=== PATIENT | male | born 1945 | race Caucasian/White ===

== ENCOUNTER 2019-11-29 09:02 | Emergency (ER) | payer MEDICARE, SELFPAY ==
[2019-11-29] VITALS (11 sets, daily range): BP systolic 109–144; BP diastolic 60–90; PULSE 59–103; RESP 16–24; TEMP 36.7–38.1; O2SAT 96–100
--- NOTE | ~2019-11-29 | US_ITS ---
EXAMINATION: US venous doppler LE RT EXAM DATE: 11/29/2019 10:15 INDICATION: Right ankle pain, swelling. TECHNIQUE: Multiple grayscale, color flow and Doppler images of the right lower extremity deep venous system were obtained and reviewed. There is no prior study for comparison. FINDINGS: The right common femoral, femoral and profunda veins demonstrate normal color flow, respira tory variation, augmentation and compressibility. Compressibility, color flow confirmed within the r ight popliteal, posterior tibial, peroneal, and greater saphenous veins. IMPRESSION: 1. No right lower extremity deep venous thrombosis. Reviewed, dictated and finalized at location B. TRUCTION MATERIALS TESTER
--- NOTE | ~2019-11-29 | XR_ITS ---
EXAMINATION: XR chest 2V EXAM DATE: 11/29/2019 09:46 INDICATION: Generalized weakness. TECHNIQUE: Frontal and lateral projections of the chest obtained and reviewed. There is no prior matteo dy for comparison. FINDINGS: Low lung volume. No confluent consolidation, pneumothorax or pleural effusion suspected. T he cardiomediastinal silhouette is prominent but magnified on this AP technique. There are bony degen erative changes. Right pigtail catheter projecting over expected location of right renal pelvis. IMPRESSION: Low lung volume. No acute airspace disease. Reviewed, dictated and finalized at location B. LINE OPERATOR
--- NOTE | ~2019-11-29 | CT_ITS ---
EXAMINATION: CT abdomen pelvis w con INDICATION: Generalized weakness, urinary tract infection, recent hernia repair TECHNIQUE: Computed tomographic images of the abdomen and pelvis were obtained after the administrati on of 100 cc of Omnipaque 350 intravenous contrast. The dose-length product (DLP) was 1201.28 mGy-cm. Automated exposure control and iterative reconstruction technique were employed. COMPARISON: 03/05/2019 FINDINGS: Minimal dependent atelectasis is present in the lung bases. The heart size is normal. There is a stable 10 mm cyst of the left hepatic lobe. The spleen, pancreas, gallbladder, and adrenal glan ds are normal. There is a small sliding hiatal hernia. A right internal ureteral stent is in expected position. There is mild mucosal enhancement in the right renal pelvis The bladder is decompressed by Osman catheter. Tiny foci of gas are seen in the collecting systems on the right, likely due to urin jackie tract instrumentation. Cysts of the kidneys measure up to 1.9 cm on the right. No pathologically enlarged abdominal or pelvic lymph nodes are identified. There are no dilated loops of bowel. Fat str anding in the right lower quadrant is likely related to history of recent hernia repair. Gas in the u rinary bladder is likely due to the Osman catheter. There are tiny foci of gas anterior to the bladde r which appear to be contiguous with tiny foci of gas in the anterior bladder wall. Although no signi ficant adjacent fluid is seen, absence of fluid could be due to bladder decompression by the Osman ca theter. There is thickening of the bladder wall. There are bridging osteophytes at multiple levels in the spine, consistent with diffuse idiopathic skeletal hyperostosis (DISH). IMPRESSION: 1. Mucosal enhancement of the right renal pelvis and wall thickening of the urinary bladder, consiste nt with history of urinary tract infection. 2. Tiny foci of gas within the anterior bladder wall contiguous with the extraluminal gas immediately anterior to the bladder which could reflect underlying bladder injury during recent surgery. Recomme nd correlation with surgical history. Reviewed, dictated and finalized at location A. NEER STEAM IMPRESSION: 1. Mucosal enhancement of the right renal pelvis and wall thickening of the uri nary bladder, consistent with history of urinary tract infection. 2. Tiny foci of gas within the anterior bladder wall contiguous with the extral uminal gas immediately anterior to the bladder which could reflect underlying b ladder injury during recent surgery. Recommend correlation with surgical histor y.
--- NOTE | ~2019-11-29 | XR_ITS ---
EXAMINATION: XR ankle RT min 3V DATE: 11/29/2019 09:46 INDICATION: Right ankle pain and swelling. TECHNIQUE: 4 views of right ankle were obtained. COMPARISON: None. FINDINGS: There is inversion at the ankle joint. No acute fracture. There is severe osteoarthritis of the ankle joint and moderate to severe osteoarthritis of the subtalar joint and talonavicular joint. There are enthesophytes at the posterior and plantar aspects of calcaneal tuberosity. Ankle soft tis alena swelling is noted. IMPRESSION: 1. Polyarticular osteoarthritis. Reviewed, dictated and finalized at location A. UNITY SERVICE OFFICER
--- NOTE | 2019-11-29 09:48 | ED.WEAKNESS ---
HPI - Weakness General Chief complaint: Extremity Problem,Nontraumatic Stated complaint: R ANKLE PAIN/SWELLING Time Seen by Provider: 11/29/19 09:10 Source: patient and family Mode of arrival: EMS Limitations: other (history of aphasia due to prior stroke) History of Present Illness HPI Narrative: This is a 74 year old male that presents to the ER for generalized weakness x 2 days. Patient with history of aphasia so history given by . Reports generalized weakness x 2 days. Reports he usually walk with a walker and has been unable to walk. Reports she also noted some swelling and redness of his right ankle and that the ankle is tender to touch. Related Data Home Medications Medication Instructions Recorded Confirmed aspirin [Ecotrin Low Strength] 81 mg PO DAILY 11/29/19 11/29/19 atorvastatin 11/29/19 clopidogrel 75 mg PO DAILY 11/29/19 11/29/19 duloxetine 60 mg PO DAILY 11/29/19 11/29/19 gabapentin 300 mg PO TID 11/29/19 11/29/19 insulin glargine [Lantus Solostar 100 unit SUBCUT DAILY 11/29/19 11/29/19 U-100 Insulin] lisinopril 10 mg PO DAILY 11/29/19 11/29/19 metformin 1,000 mg PO DAILY 11/29/19 11/29/19 sitagliptin [Januvia] 100 mg PO DAILY 11/29/19 11/29/19 Allergies Allergy/AdvReac Type Severity Reaction Status Date / Time No Known Allergies Allergy Verified 11/29/19 09:11 Review of Systems Review of Systems: Narrative: CONSTITUTIONAL: Denies fever, chills ENT: Denies rhinorrhea or congestion CARDIOVASCULAR: Denies chest pain RESPIRATORY: Denies cough or dyspnea. GASTROINTESTINAL: Denies abdominal pain, nausea, vomiting GENITOURINARY: Reports hematuria. SKIN: Denies rash All systems reviewed & are unremarkable except as noted in HPI and below PMFSH Past Medical History Medical History (Updated 11/29/19 @ 12:42 by Palma Quarles PA-C) History of coronary artery disease History of CVA (cerebrovascular accident) History of diabetes mellitus Family History Family History (Updated 02/14/18 @ 12:28 by DOCTOR UNKNOWN) Mother Diabetes mellitus Family history of cardiovascular disease Family history of congenital heart disease Family history of arthritis Father Family history of emphysema, Onset Age: 55 Family history of congestive heart failure, Onset Age: 55 Acute myocardial infarction Family history of congenital heart disease Other Hypertension Social History Social History Smoking status: Never smoker Alcohol intake: current Exam Narrative: Exam Narrative: GENERAL: Chronically ill-appearing, obese, and in no acute distress. HEAD: Normocephalic, atraumatic. EYES: EOMI. ENT: Nares clear, no rhinorrhea or epistaxis. Mucous membranes moist. Oropharynx without tonsillar hypertrophy exudate or other lesions. Bilateral TMs pearly albarran non-bulging NECK: Supple. No adenopathy or masses. CHEST: Clear to auscultation. No respiratory distress. No wheezes rales or rhonchi HEART: Regular rate and rhythm. No murmur heard. Normal peripheral pulses. ABDOMEN: Soft, nontender, mild distention, normal active bowel sounds. Surgical scars well healed from recent robotic abdominal surgery; no erythema or abnormal drainage EXTREMITIES: Normal range of motion. Moderate edema and erythema about the right ankle, tender to touch. Normal DP pulses. Normal sensation SKIN: Warm, dry, no rash. NEURO: No focal deficits. Alert and oriented x3. PSYCH: Normal mood and affect Course Consultations Consultation #1: Spoke with Dr. Marcum at [facility]. Patient will be transferred for treatment of complicated UTI with recent surgery Date: 11/29/19 Time: 12:40 Vital Signs Vital signs: Vital Signs Temperature 98.0 F 11/29/19 09:00 Pulse Rate 103 H 11/29/19 09:00 Respiratory Rate 19 11/29/19 09:00 Blood Pressure 120/60 11/29/19 09:00 Pulse Oximetry 98 11/29/19 09:00 Temperature 98.0 F 11/29/19 09:00 Pulse Rate 93 11/29/19 10:43 Respiratory Rate 23 H 11/29/19 10:43 Bl
[2019-11-29] MEDS: SODIUM CHLORIDE 0.9% IV 1,000 ML 999 ML IV CONT ×2 (09:50→12:58)
[2019-11-29 10:10] LABS: Basophils Percent Auto 0.2 % (0.2-1.2); Hematocrit 40.8 % (42.0-52.0); Hemoglobin 12.8 g/dL (14.0-18.0); Immature Granulocyte Absolute 0.08 K/mm3 (0.00-0.031); Immature Granulocyte Percent A 0.4 % (0-0.5); Lymphocytes Absolute Auto 0.62 K/mm3 (0.9-3.2); Lymphocytes Percent Auto 3.5 % (18.3-44.2); Mean Corpuscular HGB Conc 31.4 g/dl (32-36); Mean Corpuscular Hemoglobin 25.3 pg (26-34); Mean Corpuscular Volume 80.6 fl (80-100); Mean Platelet Volume 9.8 fl (7.4-10.4); Monocytes Absolute Auto 1.6 K/mm3 (0.1-0.6); Monocytes Percent Auto 8.8 % (2.6-8.5); Neutrophils Absolute Auto 15.5 K/mm3 (1.3-6.7); Neutrophils Percent Auto 87.1 % (45.5-73.1); Platelet Count Result 339 k/mm3 (150-375); Red Blood Count 5.06 M/mm3 (4.6-6.20); Red Cell Distribution Width 14.9 % (11.5-14.5); White Blood Count 17.8 K/mm3 (4.5-10.0)
[2019-11-29 10:20] LABS: Prothrombin Time 13.3 Seconds (11.1-14.7)
[2019-11-29 10:21] LABS: Partial Thromboplastin Time 30.2 SECONDS (22.3-36.8)
[2019-11-29 10:25] LABS: Lactic Acid Reflex 1.2 mmol/L (0.7-2.1)
[2019-11-29 10:40] LABS: Alanine Aminotransferase 17 U/L (4-50); Albumin Level 3.9 g/dL (3.5-5.1); Alkaline Phosphatase 104 U/L (38-126); Aspartate Amino Transferase 18 U/L (17-59); Bilirubin,Total 0.6 mg/dL (0.2-1.3); Blood Urea Nitrogen 29 mg/dL (9-20); Calcium 9.1 mg/dL (8.4-10.2); Carbon Dioxide 22 mmol/L (22-30); Chloride 101 mmol/L (98-107); Estimated Glomerular Filt Rate > 60; Glucose 171 mg/dL (75-110); Lipase 38 U/L (23-300); Potassium 4.1 mmol/L (3.4-5.0); Sodium 136 mmol/L (137-145)
[2019-11-29 10:53] LABS: Add Urine Microscopic? YES; Appearance Urine Turbid (Clear); Bilirubin Urine Negative (Negative); Blood Urine 3+ (Negative); Color Urine Yellow (Yellow); Glucose Urine UA 3+ mg/dL (Negative); Ketones Urine Trace mg/dL (Negative); Leukocyte Esterase Ur 3+ LEU/UL (Negative); Mucus Urine Few /lpf; Nitrate Urine Positive (Negative); Protein Urine 3+ mg/dL (Negative); RBC Urine >75 /hpf (0-2); Specific Grav Ur 1.028 (1.001-1.035); Urobilinogen Urine Negative mg/dL (<2.0); WBC Urine >75 /hpf
[2019-11-29 10:55] LABS: CRP 22.9 mg/dL (<1.0)
[2019-11-29] MEDS: MORPHINE SULFATE 4 MG/ML INJ IV PUSH (15:51)
[2019-11-29] MEDS: ONDANSETRON INJ 4 MG/2 ML VIAL IV PUSH (15:51)
--- NOTE | 2019-11-29 17:00 | PC.NURSE ---
status bed check - - no bed available at [place]
--- NOTE | 2019-11-29 20:06 | PC.NURSE ---
REMOVED PT'S PRE-EXISTING BUENO CATHETER INTACT AND W/O DIFFICULTY; PT TOLERATED WELL. BUENO D/C'd AT THIS TIME PER RBVO FROM Missy ARMSTRONG PA-C.
== END 2019-11-29 21:22 | disposition short-term general hospital (02) ==
PROVIDERS: Physician Assistant; Emergency Provider Family Medicine; PCP Family Medicine
DX: N30.01 Acute cystitis with hematuria (principal); M79.671 Pain in right foot; I25.10 Atherosclerotic heart disease of native coronary artery without angina pectoris; Z86.73 Personal history of transient ischemic attack (TIA), and cerebral infarction without residual deficits; E11.9 Type 2 diabetes mellitus without complications; Z79.4 Long term (current) use of insulin; Z79.84 Long term (current) use of oral hypoglycemic drugs; Z79.82 Long term (current) use of aspirin; R93.41 Abnormal radiologic findings on diagnostic imaging of renal pelvis, ureter, or bladder; M19.071 Primary osteoarthritis, right ankle and foot
CPT/HCPCS: 36415; 71046; 73610; 74177; 80053; 81001; 83605; 83690; 85025; 85610; 85730; 86140; 87040; 87077; 87086; 87088; 87147; 87186; 87804; 93971; 96361; 96365; 96368; 96375; 96376; 99285; J0131; J0696; J2270; J2405; J7030; Q9967

== ENCOUNTER 2020-01-17 07:45 | Outpatient (CLI) | payer MEDICARE, SELFPAY ==
--- NOTE | ~2020-01-17 | MR_ITS ---
EXAMINATION: MR ankle RT wo con DATE: 01/17/2020 09:21 INDICATION: Osteomyelitis at the right ankle post surgery 2 months prior. TECHNIQUE: Magnetic resonance imaging (MRI) of the right ankle was performed without intravenous cont rast. Sequences included axial, sagittal and coronal T1-weighted FSE and T2-weighted FS FSE. COMPARISON: Radiograph dated 11/29/2019 FINDINGS: There is a separate ossicle at the anterior tip of the medial malleolus, unclear whether this represe nts an old nonunited fracture fragment or chronic heterotopic ossicle. Also suggestive of old trauma and likely chronic ankle sprain is prominent heterotopic ossification between the distal tibia and fi bula expected locations of the distal anterior and posterior tibiofibular ligaments. Additional heter otopic ossification versus degenerative loose osteochondral bodies at the posterior recess and along the expected locations of the anterior and posterior talofibular ligaments. No acute fracture. Inversion/varus angulation at the subtalar joint with severe medial sided joint space narrowing resul ting in essentially [id number] apposition with remodeling of the articular surfaces. Additional ost eoarthritis, moderate at the subtalar and mild at the multiple joints in the midfoot. Fluid signal in tensity within several large erosions at the medial side of the talar dome, posterior aspect of the t ibial plafond and lateral margin of the anterior calcaneus which appear chronic with low signal inten sity likely corticated margins and no significant edema in the immediately adjacent marrow. No geogra phic regions of intraosseous T1 marrow fat signal loss to more specifically suggest osteomyelitis. Mild tenosynovitis along the peroneal tendons with moderate tendinopathy and longitudinal split teari ng of both the peroneus longus and brevis tendons. Diffuse soft tissue edema about the ankle and exte nding over the dorsum of the foot. Mild fatty atrophy and increased fluid signal in the intrinsic mus culature of the foot which can be seen with acute on chronic innervation changes in the setting of di abetic neuropathy. No joint effusions or loculated fluid collections to suggest abscess. There is a l inear shallow defect on the skin surface anterior to the normal-appearing tibialis anterior tendon po tentially representing a wound related to reported recent surgery. IMPRESSION: 1. Multiple large chronic appearing juxta-articular erosions with corticated margins involving the ta juliocesar, distal tibia and anterior process of the calcaneus. The cortication and lack of significant imme diately adjacent marrow edema would argue against osteomyelitis and most likely differential would in clude either gout or large osteoarthritis related geodes. 2. Suggestive old nonunited fracture of the medial malleolus with prominent heterotopic ossification along the course of the lateral stabilizing ligaments of the ankle suggesting sequela of chronic late ral ankle sprain. 3. Polyarticular osteoarthritis, advanced at the tibiotalar joint, moderate at the subtalar joint and mild at multiple joints in the remaining mid and hindfoot. 4. Peroneal tenosynovitis with tendinopathy and longitudinal split tearing of the peroneus longus and brevis tendons. 5. Scattered predominantly subarticular marrow edema associated with the tibiotalar and subtalar join ts which is most likely degenerative in etiology. While early osteomyelitis cannot be absolutely excl uded there is no associated geographic loss of T1 marrow fat signal or acute appearing cortical erosi ons on the current study or prior radiographs to more specifically suggest this. Reviewed, dictated and finalized at location A.
== END 2020-01-17 07:46 | disposition home or self-care (01) ==
PROVIDERS: PCP Family Medicine; Visit Provider Family Medicine
DX: M86.9 Osteomyelitis, unspecified (principal); M19.071 Primary osteoarthritis, right ankle and foot
CPT/HCPCS: 73721

== ENCOUNTER 2021-04-08 13:56 | Outpatient (CLI) | payer MEDICARE, SELFPAY ==
--- NOTE | ~2021-04-08 | XR_ITS ---
XR cervical spine 4-5V 04/08/2021 14:28 Indication: Left shoulder and arm paresthesias Procedure: 6 views of the cervical spine Comparison: No prior studies for comparison. Findings: There is mild disc narrowing at multiple cervical spine levels. There are prominent bridgin g osteophytes from C2-3 through C5-6 and C6-7. There is moderate multilevel uncinate and facet hypert rophy. Lung apices are normal. Odontoid process within normal limits. No prevertebral soft tissue swe lling. Odontoid process within normal limits. Impression: 1: Severe cervical spondylosis. Reviewed, dictated and finalized at location B. Impression: 1: Severe cervical spondylosis.
--- NOTE | ~2021-04-08 | XR_ITS ---
EXAMINATION: XR shoulder LT min 2V DATE: 04/08/2021 14:28 INDICATION: Paresthesias of left arm and shoulder. TECHNIQUE: 4 views of left shoulder were obtained. COMPARISON: None. FINDINGS: Bone alignment is normal. No fracture. There is mild osteoarthritis of glenohumeral joint a nd severe osteoarthrosis of acromioclavicular joint. IMPRESSION: 1. Polyarticular osteoarthritis. Reviewed, dictated and finalized at location A.
== END 2021-04-08 13:57 | disposition home or self-care (01) ==
LOC: ANHIMG 14:02
PROVIDERS: PCP Family Medicine; Visit Provider Family Medicine
DX: M47.892 Other spondylosis, cervical region (principal); M19.012 Primary osteoarthritis, left shoulder
CPT/HCPCS: 72050; 73030

== ENCOUNTER 2022-04-14 12:54 | Outpatient (CLI) | payer MEDICARE, SELFPAY ==
--- NOTE | ~2022-04-14 | XR_ITS ---
EXAM: XR abdomen/kub 1V DATE: 04/14/2022 13:20 HISTORY: HYDRONEPHROSIS . COMPARISON: CT abdomen and pelvis 11/29/2019. FINDINGS: Surgical clips over the right pelvis. Lung bases not visualized. Normal bowel gas pattern. No organomegaly. Vascular calcifications. Severe degenerative lumbar changes. Moderate bilateral hip osteoarthritis. IMPRESSION: No radiopaque evidence of urolithiasis. Reviewed, dictated and finalized at location K.
== END 2022-04-14 12:55 | disposition home or self-care (01) ==
PROVIDERS: PCP Family Medicine; Visit Provider Urology
DX: N13.30 Unspecified hydronephrosis (principal)
CPT/HCPCS: 74018

== ENCOUNTER 2023-06-05 15:00 | Emergency (ER) | payer MEDICARE, SELFPAY ==
--- NOTE | ~2023-06-05 | CT_ITS ---
Clinical Indication: Chest and abdominal pain CT Scan of the Chest, Abdomen, and Pelvis with Contrast: Technique: Contiguous sections were acquired throughout the chest, abdomen, and pelvis after intraven ous administration of 100 cc of Omnipaque 350. Dose reduction technique was used on this scan by ping pooleing automated exposure control and iterative reconstruction technique. The dose-length product (DL P) was 1571.03 mGy-cm. COMPARISON: 11/29/2019 Findings: There is no evidence of any significant mediastinal, hilar or axillary lymphadenopathy. The mediastin al soft tissues appear normal. No aortic aneurysm or dissection. No central pulmonary embolus evident There is no evidence of pleural or pericardial effusion. The lungs are clear, aside from calcified granulomata superior segment of the left lower lobe. There is probable diffuse fatty infiltration of the liver. The spleen, pancreas, gallbladder, adrenal s and kidneys are within normal limits. No evidence of aortic aneurysm or dissection. No lymphadeno alma. No bowel obstruction or bowel wall thickening. There is no evidence to suggest acute appendicitis. Urinary bladder is unremarkable. Prostate gland and seminal vesicles are unremarkable. No ascites. Impression: No acute abnormality. Probable diffuse fatty infiltration of the liver. Reviewed, dictated and finalized at location . Impression: No acute abnormality. Probable diffuse fatty infiltration of the liver.
[2023-06-05 15:01] VITALS: BP 125/61; PULSE 95; RESP 22; TEMP 36.7; O2SAT 100
--- NOTE | 2023-06-05 15:03 | ECG_ITS ---
Measurements Intervals [place] Rate: 92 P: 56 TN: 219 QRS: -48 QRSD: 154 T: 83 QT: 357 QTc: 442 Interpretive Statements SINUS RHYTHM WITH FIRST DEGREE AV BLOCK MARKED LEFT AXIS DEVIATION [QRS AXIS < -30] INTRAVENTRICULAR CONDUCTION DELAY [130+ ms QRS DURATION] Poor R-wave progression, cannot rule out old anterior MN. NO PREVIOUS ECG AVAILABLE FOR COMPARISON Electronically Signed On 06-06-2023 8:28:54 CDT by Stacie Esposito M.D.
[2023-06-05 15:07] VITALS: BP 125/61; PULSE 96; RESP 21; O2SAT 100
--- NOTE | 2023-06-05 15:19 | ED.CHESTPAIN ---
HPI - Chest Pain General Chief Complaint: Chest Pain Stated Complaint: cp Time Seen by Provider: 06/05/23 15:02 History of Present Illness HPI narrative: 77-year-old male presented to ED for evaluation of chest pain that started prior to arrival. Patient states over the last few days he has not been feeling well and has had pain at his heels. Patient was complaining of chest pain prior to arrival. Upon arrival to the ED patient states his chest pain has resolved but is complaining of abdominal pain. Patient does have a distended abdomen that is tender to palpation. Related Data Home Medications Medication Instructions Recorded Confirmed aspirin 81 mg tablet,delayed 81 mg PO DAILY 11/29/19 05/31/23 release (Ecotrin Low Strength) cholecalciferol (vitamin D3) 50 50 mcg PO DAILY 05/02/20 05/31/23 mcg (2,000 unit) capsule icosapent ethyl 1 gram capsule 2 g PO BID 05/06/21 05/31/23 insulin glargine 100 unit/mL (3 98 unit subcut DAILY 03/02/23 05/05/23 mL) subcutaneous pen (Lantus Solostar U-100 Insulin) Allergies Allergy/AdvReac Type Severity Reaction Status Date / Time No Known Allergies Allergy Verified 05/31/23 13:07 Review of Systems Review of Systems: All systems reviewed & are unremarkable except as noted in HPI and below PMFSH Past Medical History Medical History Atherosclerotic heart disease of [place] coronary artery without angina pectoris Essential (primary) hypertension History of asbestos exposure History of coronary artery disease History of CVA (cerebrovascular accident) History of diabetes mellitus Hyperlipidemia, unspecified 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, recurrent, in partial remission Obesity Obstructive sleep apnea Solitary lung nodule 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 Unspecified sequelae of other cerebrovascular disease Urgency of urination Vitamin D deficiency, unspecified Family History Family History Mother Diabetes mellitus Family history of cardiovascular disease Family history of congenital heart disease Family history of arthritis Father Family history of emphysema, Onset Age: 55 Family history of congestive heart failure, Onset Age: 55 Acute myocardial infarction Family history of congenital heart disease Other Hypertension Social History Social History (Updated 05/31/23 @ 13:10 by Shante Nettles MA) Social History: States smoke a little as a teenage, did not know time frame. Smoking status: Former smoker Second hand tobacco smoke exposure: Yes Alcohol intake: former Substance use: never Substance use type: does not use Lack of Transportation: No Lack of Food: Never True Current Housing: I Have Housing Concerned About Future Housing: No Difficulty Paying Gas/Electric Bills: No Difficulty Paying for Meds: No Currently Unemployed: No Education: High School Diploma/GED Difficulty w/ Childcare or Family Care: No Living arrangements: with family Occupation/Education: retired Gender identity (if verbalized by the patient): Male Sexual Orientation (if Verbalized by the Patient): Straight or Heterosexual Spiritual care concerns: No Exam Narrative: APPEARANCE: Well appearing, no pain, no distress, well-nourished. HEAD: normocephalic, atraumatic. EYES: PERRLA/EOMI, conjunctivae clear. NOSE: Normal no drainage EARS:TMS clear with good light reflex. THROAT: Pharynx clear, no exudate. NECK: Supple. No adenopathy, no masses. RESPIRATORY: Airway patent, respirations nonlabored. Clear to auscultation bilaterally, no rales, rhonchi, wheezing. CARDIOVASCULAR: Regular rate and rhythm without murmurs rubs or gallops. ABDOMINAL: Soft, nontender, nondistended, normal bowel sounds MUSCULOSKELETAL: Moves all extremities. Stren
[2023-06-05 15:53] LABS: Basophils Absolute Auto 0.1 K/mm3 (0.0-0.1); Basophils Percent Auto 0.6 % (0.2-1.2); Eosinophils Absolute Auto 0.2 K/mm3 (0-0.3); Eosinophils Percent Auto 2.8 % (0-4.4); Hemoglobin 11.7 g/dL (14.0-18.0); Immature Granulocyte Absolute 0.04 K/mm3 (0.00-0.031); Immature Granulocyte Percent A 0.5 % (0-0.5); Lymphocytes Percent Auto 18.3 % (18.3-44.2); Mean Corpuscular HGB Conc 31.6 g/dl (32-36); Mean Corpuscular Hemoglobin 27.7 pg (26-34); Mean Corpuscular Volume 87.7 fl (80-100); Mean Platelet Volume 10.1 fl (7.4-10.4); Monocytes Absolute Auto 0.6 K/mm3 (0.1-0.6); Monocytes Percent Auto 7.4 % (2.6-8.5); Neutrophils Absolute Auto 5.8 K/mm3 (1.3-6.7); Neutrophils Percent Auto 70.4 % (45.5-73.1); Platelet Count Result 224 k/mm3 (150-375); Red Blood Count 4.22 M/mm3 (4.6-6.20); Red Cell Distribution Width 14.2 % (11.5-14.5); White Blood Count 8.2 K/mm3 (4.5-10.0)
[2023-06-05 15:55] LABS: Appearance Urine Clear (Clear); Bilirubin Urine Negative (Negative); Blood Urine Negative (Negative); Color Urine Yellow (Yellow); Glucose Urine UA 3+ mg/dL (Negative); Ketones Urine Negative (Negative); Leukocyte Esterase Ur Negative LEU/UL (Negative); Nitrate Urine Negative (Negative); Protein Urine Negative (Negative); Specific Grav Ur 1.025 (1.001-1.035)
[2023-06-05 16:00] VITALS: BP 122/62; PULSE 92; RESP 18; O2SAT 100
[2023-06-05 16:03] LABS: Prothrombin Time 13.2 Seconds (11.1-14.7)
[2023-06-05 16:04] LABS: Partial Thromboplastin Time 26.4 SECONDS (22.3-36.8)
[2023-06-05 16:09] LABS: Alanine Aminotransferase 38 U/L (6-50); Albumin Level 3.9 g/dL (3.5-5.1); Alkaline Phosphatase 139 U/L (38-126); Anion Gap 12 mmol/L (8-16); Aspartate Amino Transferase 27 U/L (17-59); Bilirubin,Total 0.3 mg/dL (0.2-1.3); Blood Urea Nitrogen 36 mg/dL (9-20); Calcium 8.9 mg/dL (8.4-10.2); Carbon Dioxide 22 mmol/L (22-30); Chloride 99 mmol/L (98-107); Estimated CRCL calculation 62 ml/min; Estimated Glomerular Filt Rate > 60; Glucose 292 mg/dL (65-110); Potassium 4.6 mmol/L (3.4-5.0); Sodium 133 mmol/L (137-145)
[2023-06-05 16:20] LABS: Add Urine Microscopic? NO; NT Pro B Type Natriuretic Pept 72 pg/mL (19.9-100); Troponin I < 0.012 ng/mL (0.000-0.034)
[2023-06-05 17:15] VITALS: BP 130/68; PULSE 90; RESP 16
[2023-06-05 18:31] LABS: Troponin I < 0.012 ng/mL (0.000-0.034)
== END 2023-06-05 19:07 | disposition home or self-care (01) ==
LOC: ANHED 15:36
PROVIDERS: Emergency Provider Emergency Medicine; PCP Family Medicine
DX: R07.89 Other chest pain (principal); R10.9 Unspecified abdominal pain; I25.10 Atherosclerotic heart disease of native coronary artery without angina pectoris; I10 Essential (primary) hypertension; I69.90 Unspecified sequelae of unspecified cerebrovascular disease; E11.311 Type 2 diabetes mellitus with unspecified diabetic retinopathy with macular edema; E78.5 Hyperlipidemia, unspecified; E55.9 Vitamin D deficiency, unspecified; G47.33 Obstructive sleep apnea (adult) (pediatric); E66.9 Obesity, unspecified; Z68.33 Body mass index [BMI] 33.0-33.9, adult; Z87.891 Personal history of nicotine dependence; Z79.4 Long term (current) use of insulin; Z79.82 Long term (current) use of aspirin; Z79.84 Long term (current) use of oral hypoglycemic drugs; I44.0 Atrioventricular block, first degree; I45.9 Conduction disorder, unspecified; R94.31 Abnormal electrocardiogram [ECG] [EKG]
CPT/HCPCS: 36415; 71275; 74174; 80053; 81003; 83880; 84484; 85025; 85610; 85730; 93005; 99284; Q9967

== ENCOUNTER 2023-10-01 16:25 | Inpatient (IN) | payer MEDICARE, SELFPAY ==
--- NOTE | ~2023-10-01 | CT_ITS ---
EXAMINATION: CT brain wo con DATE: 10/01/2023 16:40 INDICATION: Syncope. TECHNIQUE: Computed tomography (CT) of the head was performed without intravenous contrast. The mA wa s adjusted according to patient size. Iterative reconstruction technique was employed. The dose-lengt h product was 605.33 mGy-cm. COMPARISON: None FINDINGS: There are large old infarct involving the left frontal, temporal, parietal, and occipital l obes, posterior left insula, left thalamus, and posterior left basal ganglia in the expected distribu tion of the left middle cerebral artery. There are scattered areas of low attenuation in the cerebral white matter, likely chronic small vessel ischemic disease. There is ex vacuo dilatation of trigone of left lateral ventricle. There are likely changes of ocular lens replacement surgeries. There is mu cosal thickening in the paranasal sinuses. The mastoid air cells are normal. IMPRESSION: 1. Large old infarct in the expected distribution of left middle cerebral artery. Reviewed, dictated and finalized at location A. S SOAKER IMPRESSION: 1. Large old infarct in the expected distribution of left middle cerebral arter y.
--- NOTE | ~2023-10-01 | CT_ITS ---
EXAMINATION: CTA brain carotid DATE: 10/01/2023 16:40 INDICATION: Syncope. TECHNIQUE: Computed tomographic angiography (CTA) of the head was performed with 100 mL Omnipaque-350 intravenous contrast. CTA of the neck was performed with intravenous contrast. Automated exposure co ntrol and iterative reconstruction technique were employed. The dose-length product was 1166.74 mGy-c m. Maximum intensity projection and volume rendered 3D-reconstructions were created by the technologi st on a separate workstation. COMPARISON: None. FINDINGS: HEAD CTA: There is a large old infarct involving the left frontal, temporal, parietal, and occipital lobes, posterior left insula, left thalamus, and posterior left basal ganglia in the expected distrib ution of the left middle cerebral artery. There are scattered areas of low attenuation in the cerebra l white matter, likely chronic small vessel ischemic disease. There is ex vacuo dilatation of trigone of left lateral ventricle. There are likely changes of ocular lens replacement surgeries. There is m ucosal thickening in the paranasal sinuses. The mastoid air cells are normal. The vertebral arteries are codominant. There is no significant stenosis of basilar artery or the posterior cerebral arteries . There is no significant stenosis of intracranial internal carotid arteries or anterior or middle ce rebral arteries. Anterior communicating artery is normal. The posterior communicating arteries are no rmal. There is no aneurysm. NECK CTA: There are no pathologically enlarged lymph nodes. There is a 5 mm nodule in right thyroid l obe, likely not clinically significant. There is no significant stenosis of the vertebral arteries. T here is plaque in the proximal internal carotid arteries. There is 0% stenosis of the proximal right internal carotid artery relative to normal distal artery lumen diameter (NASCET criteria). There is 1 0% stenosis of the proximal left internal carotid artery relative to normal distal artery lumen diame ter. There is severe cervical spondylosis. IMPRESSION: 1. Large old infarct in the expected distribution of left middle cerebral artery. 2. No aneurysm or significant intracranial arterial stenosis. 3. 0% stenosis of the proximal right internal carotid artery relative to normal distal artery lumen d iameter (NASCET criteria). 4. 10% stenosis of the proximal left internal carotid artery relative to normal distal artery lumen d iameter. Reviewed, dictated and finalized at location A. [facility] IMPRESSION: 1. Large old infarct in the expected distribution of left middle cerebral arter y. 2. No aneurysm or significant intracranial arterial stenosis. 3. 0% stenosis of the proximal right internal carotid artery relative to normal distal artery lumen diameter (NASCET criteria). 4. 10% stenosis of the proximal left internal carotid artery relative to normal distal artery lumen diameter.
--- NOTE | ~2023-10-01 | XR_ITS ---
EXAMINATION: XR chest 1V portable DATE: 10/01/2023 17:04 INDICATION: Cerebral vascular accident. TECHNIQUE: A single frontal view of the chest was obtained. COMPARISON: Chest 2 views 11/29/2019, chest CT 06/05/2023 FINDINGS: Again seen are small lung volumes with mild elevation of right hemidiaphragm. There is mild atelectasis at right lung base. No pleural effusion or pneumothorax. The heart size is normal. IMPRESSION: 1. Mild atelectasis at right lung base. Reviewed, dictated and finalized at location A. TENDER FOURDRINIER
[2023-10-01 16:22] VITALS: BP 155/77; PULSE 98; RESP 18; TEMP 36.7; O2SAT 97
--- NOTE | 2023-10-01 16:25 | ECG_ITS ---
Measurements Intervals [place] Rate: 96 P: 59 [place]: 176 QRS: -61 QRSD: 119 T: 86 QT: 352 QTc: 446 Interpretive Statements SINUS RHYTHM LOW QRS VOLTAGE IN PRECORDIAL LEADS [QRS DEFLECTION < 1.0 mV IN CHEST LEADS] LEFT ANTERIOR FASCICULAR BLOCK [QRS AXIS <= -45, QR IN I, RS IN II] NONSPECIFIC ST & T-WAVE ABNORMALITY BORDERLINE ECG COMPARED TO ECG 06/05/2023 15:10:35 LEFT ANTERIOR FASCICULAR BLOCK NOW PRESENT Electronically Signed On 10-02-2023 13:51:31 SUPERVISOR FISH BAIT PROCESSING by Todd Turner M.D.
--- NOTE | 2023-10-01 16:35 | ED.NEUROSD ---
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 Initial HPI is unclear as EMS reports that they go to the house semi-regularly for a lift assist and at baseline he is A&O x3 without limitations other than generalized weakness. On review of systems, patient denies any chest pain, abdominal pain, shortness of breath, or pain in arms/legs but responds yes when asked if he has a headache. History from patient otherwise limited. Given confusion and communication that there is concern for a stroke and last known well was 90 minutes prior when he sustained a fall and/or became unresponsive briefly, a code stroke is initiatiated. Upon 's arrival, however, she notes that he did not fall and did not lose consciousness, only that he usually ambulates with a walker and has been moving more slowly. He had complained yesterday or a sore throat. She notes that his expressive aphasia makes communication difficult but she can generally understand his needs/wants. She states she was helping him move across the room using his walker today and he walked very slowly and was generally weak causing them to sit down and call 911 for EMS help. Patient has been vaccinated against covid. Related Data Home Medications Medication Instructions Recorded Confirmed aspirin 81 mg tablet,delayed 81 mg PO DAILY 11/29/19 10/01/23 release (Ecotrin Low Strength) cholecalciferol (vitamin D3) 50 50 mcg PO DAILY 05/02/20 10/01/23 mcg (2,000 unit) capsule icosapent ethyl 1 gram capsule 1 g PO BID 10/01/23 10/01/23 Allergies Allergy/AdvReac Type Severity Reaction Status Date / Time No Known Allergies Allergy Verified 08/20/23 13:07 [facility] Past Medical History Medical History (Updated 10/02/23 @ 10:28 by Sammie Sesay MD) Atherosclerotic heart disease of [place] coronary artery without angina pectoris Essential (primary) hypertension History of asbestos exposure History of coronary artery disease History of CVA (cerebrovascular accident) History of diabetes mellitus Hyperlipidemia, unspecified Impaired mobility 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, recurrent, in partial remission Obesity Obstructive sleep apnea Severe aphasia Solitary lung nodule 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 Unspecified sequelae of other cerebrovascular disease Urgency of urination Vitamin D deficiency, unspecified Surgical History Surgical History H/O hernia repair Family History Family History Mother Diabetes mellitus Family history of cardiovascular disease Family history of congenital heart disease Family history of arthritis Father Family history of emphysema, Onset Age: 55 Family history of congestive heart failure, Onset Age: 55 Acute myocardial infarction Family history of congenital heart disease Other Hypertension Social History Social History Social History: States smoke a little as a teenage, did not know time frame. Smoking status: Former smoker Second hand tobacco smoke exposure: Yes Alcohol intake: former Substance use: never Substance use type: does not use Lack of Transportation: No Lack of Food: Never True Current Housing: I Have Housing Concerned About Future Housing: No Difficulty Paying Gas/Electric Bills: No Difficulty Paying for Meds: No Currently Unemployed: No Education: High School Diploma/GED Difficulty w/ Childcare or Family Care: No Living arrangeme
[2023-10-01 16:37] LABS: Basophils Percent Auto 0.5 % (0.2-1.2); Eosinophils Percent Auto 0.4 % (0-4.4); Hematocrit 47.2 % (42.0-52.0); Hemoglobin 14.9 g/dL (14.0-18.0); Immature Granulocyte Absolute 0.05 K/mm3 (0.00-0.031); Immature Granulocyte Percent A 0.6 % (0-0.5); Lymphocytes Absolute Auto 0.79 K/mm3 (0.9-3.2); Lymphocytes Percent Auto 9.9 % (18.3-44.2); Mean Corpuscular HGB Conc 31.6 g/dl (32-36); Mean Corpuscular Hemoglobin 25.7 pg (26-34); Mean Corpuscular Volume 81.5 fl (80-100); Mean Platelet Volume 9.8 fl (7.4-10.4); Monocytes Absolute Auto 0.9 K/mm3 (0.1-0.6); Monocytes Percent Auto 11.7 % (2.6-8.5); Neutrophils Absolute Auto 6.1 K/mm3 (1.3-6.7); Neutrophils Percent Auto 76.9 % (45.5-73.1); Platelet Count Result 214 k/mm3 (150-375); Red Blood Count 5.79 M/mm3 (4.6-6.20); Red Cell Distribution Width 18.6 % (11.5-14.5)
[2023-10-01 16:39] LABS: Estimated Glomerular Filt Rate > 60
[2023-10-01 16:45] LABS: Alanine Aminotransferase 49 U/L (6-50); Albumin Level 4.4 g/dL (3.5-5.1); Alkaline Phosphatase 106 U/L (38-126); Anion Gap 16 mmol/L (8-16); Aspartate Amino Transferase 39 U/L (17-59); Bilirubin,Total 0.6 mg/dL (0.2-1.3); Blood Urea Nitrogen 27 mg/dL (9-20); Calcium 9.5 mg/dL (8.4-10.2); Carbon Dioxide 18 mmol/L (22-30); Chloride 102 mmol/L (98-107); Estimated Glomerular Filt Rate > 60; Glucose 281 mg/dL (65-110); Potassium 4.7 mmol/L (3.4-5.0); Sodium 136 mmol/L (137-145)
[2023-10-01 16:57] LABS: Troponin I < 0.012 ng/mL (0.000-0.034)
[2023-10-01 17:01] VITALS: BP 153/80; PULSE 92; RESP 18; O2SAT 100
[2023-10-01 17:12] LABS: Prothrombin Time 13.3 Seconds (11.1-14.7)
[2023-10-01 17:13] LABS: Partial Thromboplastin Time 29.3 SECONDS (22.3-36.8)
[2023-10-01 17:22] LABS: Influenza A QL RT-PCR Negative (Negative); Influenza B QL RT-PCR Negative (Negative); RSV RNA, RT-PCR Negative (Negative); SARS-CoV-2 RNA PCR Positive (Negative)
[2023-10-01 18:01] LABS: Appearance Urine Clear (Clear); Bilirubin Urine Negative (Negative); Blood Urine Negative (Negative); Color Urine Yellow (Yellow); Glucose Urine UA 3+ mg/dL (Negative); Ketones Urine Negative (Negative); Leukocyte Esterase Ur Negative LEU/UL (Negative); Nitrate Urine Negative (Negative); Protein Urine Negative (Negative); Specific Grav Ur 1.032 (1.001-1.035); Urobilinogen Urine 0.2 mg/dL (<2.0)
[2023-10-01 18:05] VITALS: BP 136/46; PULSE 94; RESP 20; O2SAT 97
[2023-10-01 18:06] LABS: Add Urine Microscopic? NO
--- NOTE | 2023-10-01 18:06 | PC.NURSE ---
oxygen removed and SPO2 97-99% RA
[2023-10-01] MEDS: DEXAMETHASONE 2 MG TABLET 6 MG PO (18:43)
[2023-10-01] MEDS: REMDESIVIR 200 MG/NS 250 ML 200 MG/250 ML BAG 250 MG IVPB (19:14)
[2023-10-01 19:22] VITALS: BP 136/70; PULSE 74; RESP 16; O2SAT 100
--- NOTE | 2023-10-01 19:27 | PM.IMHP ---
H&P: HPI History of Present Illness Date/Time: 10/01/23 19:27 Chief Complaint: Patient was brought to ER for evaluation by due to progressive weakness and an unresponsive episode Narrative: He is an unfortunate 77 years old white male who is a poor historian. He has a history of large left-sided stroke causing severe aphasia, with residual mobility deficit and right-sided weakness. He has been found to be getting progressively weak and tired. He had an unresponsive episode at home today. He was brought to the ER for evaluation by EMS, workup was done which showed COVID-19. He is too weak for his to take care of him at home. He was started on IV remdesivir and oral dexamethasone in the ED. He is being admitted for medical management, close monitoring and PT/OT evaluation for DC planning. Review of Systems Review of Systems: Unable to be obtained. 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, recurrent, in partial remission Obesity Obstructive sleep apnea Severe aphasia Solitary lung nodule 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 Unspecified sequelae of other cerebrovascular disease Urgency of urination Vitamin D deficiency, unspecified Family History Family History Mother Diabetes mellitus Family history of cardiovascular disease Family history of congenital heart disease Family history of arthritis Father Family history of emphysema, Onset Age: 55 Family history of congestive heart failure, Onset Age: 55 Acute myocardial infarction Family history of congenital heart disease Other Hypertension Social History Social History Social History: States smoke a little as a teenage, did not know time frame. Smoking status: Former smoker Second hand tobacco smoke exposure: Yes Alcohol intake: former Substance use: never Substance use type: does not use Lack of Transportation: No Lack of Food: Never True Current Housing: I Have Housing Concerned About Future Housing: No Difficulty Paying Gas/Electric Bills: No Difficulty Paying for Meds: No Currently Unemployed: No Education: High School Diploma/GED Difficulty w/ Childcare or Family Care: No Living arrangements: with family Occupation/Education: retired Gender identity (if verbalized by the patient): Male Sexual Orientation (if Verbalized by the Patient): Straight or Heterosexual Spiritual care concerns: No Meds Home Medications and Allergies Home Medications Medication Instructions Recorded Confirmed Type aspirin 81 mg tablet,delayed 81 mg PO DAILY 11/29/19 10/01/23 History release (Ecotrin Low Strength) cholecalciferol (vitamin D3) 50 50 mcg PO DAILY 05/02/20 10/01/23 History mcg (2,000 unit) capsule blood sugar diagnostic (OneTouch #100 ea 11/30/22 10/01/23 Rx Ultra Test strips) atorvastatin 40 mg tablet 40 mg PO DAILY #90 tabs 05/31/23 10/01/23 Rx clopidogrel 75 mg tablet 75 mg PO DAILY #90 tabs 05/31/23 10/01/23 Rx dapagliflozin propanediol 10 mg 10 mg PO DAILY #90 tabs 05/31/23 10/01/23 Rx tablet (Farxiga) duloxetine 60 mg capsule,delayed 60 mg PO DAILY #90 caps 05/31/23 10/01/23 Rx release gabapentin 300 mg capsule 300 mg PO TID #270 caps 05/31/23 10/01/23 Rx sitagliptin phosphate 100 mg 100
--- NOTE | 2023-10-01 19:48 | ADMGEN ---
This patient, Nacho Hayes, was admitted to 3 [facility] Surg Room 333-01 @1930. Patient/family oriented to hospital policies and general routines including ID bracelet, bed and alarms, visiting hours, pain management, procedures, bathroom and other care routines, personal items, smoking policy, room service/diet, and visiting hours. Information on how to activate the Rapid Response Team has been discussed. Patient/Family are encouraged to report perceived risks to care and to ask questions if they do not understand what they are told or what they should do.
[2023-10-01 20:02] LABS: Alanine Aminotransferase 49 U/L (6-50); Albumin Level 4.4 g/dL (3.5-5.1); Alkaline Phosphatase 106 U/L (38-126); Aspartate Amino Transferase 44 U/L (17-59); Bilirubin,Total 0.7 mg/dL (0.2-1.3)
[2023-10-01 21:00] VITALS: BP 127/74; PULSE 95; RESP 18; TEMP 35.9; O2SAT 94
--- NOTE | 2023-10-01 22:47 | PC.NURSE ---
Addendum entered by Estefani Centeno RN 10/01/23 23:59: Code status confirmed with spouse. Intent is DNR. Original Note: Pt very sluggish while asking admission questions. Asked about code status but he kept saying he did not know. Asked if he wanted CPR done, he said no. Asked if he would want to be on a breathing machine and he said no. Will ask later about code status.
[2023-10-02 04:00] VITALS: BP 141/80; PULSE 82; RESP 16; TEMP 35.7; O2SAT 95
[2023-10-02] MEDS: SODIUM CHLORIDE 0.9% IV 1,000 ML 75 ML IV CONT (04:31)
[2023-10-02 06:13] VITALS: BMI 33.8
[2023-10-02 07:33] LABS: Basophils Percent Auto 0.3 % (0.2-1.2); Hematocrit 47.8 % (42.0-52.0); Hemoglobin 14.8 g/dL (14.0-18.0); Immature Granulocyte Absolute 0.03 K/mm3 (0.00-0.031); Immature Granulocyte Percent A 0.5 % (0-0.5); Lymphocytes Percent Auto 10.8 % (18.3-44.2); Mean Corpuscular Hemoglobin 25.7 pg (26-34); Mean Platelet Volume 9.9 fl (7.4-10.4); Monocytes Absolute Auto 0.4 K/mm3 (0.1-0.6); Neutrophils Absolute Auto 5.4 K/mm3 (1.3-6.7); Neutrophils Percent Auto 82.4 % (45.5-73.1); Platelet Count Result 225 k/mm3 (150-375); Red Blood Count 5.76 M/mm3 (4.6-6.20); Red Cell Distribution Width 18.8 % (11.5-14.5); White Blood Count 6.5 K/mm3 (4.5-10.0)
[2023-10-02 07:47] LABS: Anion Gap 15 mmol/L (8-16); Blood Urea Nitrogen 30 mg/dL (9-20); Calcium 9.2 mg/dL (8.4-10.2); Carbon Dioxide 21 mmol/L (22-30); Chloride 105 mmol/L (98-107); Estimated CRCL calculation 67 ml/min; Estimated Glomerular Filt Rate > 60; Glucose 269 mg/dL (65-110); Magnesium 2.3 mg/dL (1.6-2.3); Potassium 4.4 mmol/L (3.4-5.0); Sodium 141 mmol/L (137-145)
[2023-10-02 08:00] VITALS: BP 142/73; PULSE 84; RESP 20; TEMP 36.5; O2SAT 95
[2023-10-02 08:22] LABS: Glucose Point of Care 223 mg/dl (65-105)
[2023-10-02] MEDS: INSULIN ASPART (*BKC) 100 UNITS/ML SUB-Q ×3 (08:38→17:17)
[2023-10-02] MEDS: metFORMIN HCL 500 MG TABLET 1000 MG PO ×2 (08:38→17:17)
[2023-10-02] MEDS: ASCORBIC ACID 500 MG TABLET PO (08:39)
[2023-10-02] MEDS: GABAPENTIN 300 MG CAPSULE PO ×3 (08:39→17:17)
[2023-10-02] MEDS: CLOPIDOGREL BISULFATE 75 MG TABLET PO (08:39)
[2023-10-02] MEDS: CHOLECALCIFEROL 1,000 UNITS TABLET 2000 UNITS PO (08:39)
[2023-10-02] MEDS: CHOLECALCIFEROL 1,000 UNITS TABLET 1000 UNITS PO (08:39)
[2023-10-02] MEDS: EMPAGLIFLOZIN 25 MG TABLET BY MOUTH (08:39)
[2023-10-02] MEDS: DULoxetine HCL 60 MG CAPSULE.DR PO (08:39)
[2023-10-02] MEDS: lisinopriL 10 MG TABLET PO (08:39)
[2023-10-02] MEDS: FERROUS SULFATE 325 MG TABLET DR BY MOUTH (08:39)
[2023-10-02] MEDS: ZINC SULFATE 220 MG CAPSULE PO (08:39)
[2023-10-02] MEDS: ATORVASTATIN 40 MG TABLET PO (08:40)
[2023-10-02] MEDS: ASPIRIN 81 MG ENTERIC TABLET PO (08:40)
[2023-10-02] MEDS: OMEGA 3 POLYUNSAT FATTY ACIDS 1 GM CAP PO ×2 (08:40→17:17)
[2023-10-02] MEDS: INSULIN GLARGINE (*BKC) 100 UNITS/ML 98 UNITS SUB-Q (08:42)
--- NOTE | 2023-10-02 08:47 | PM.IMPN ---
Progress Note: A&P Assessment and Plan (1) Pneumonia due to COVID-19 virus: Code(s): U07.1 - COVID-19; J12.82 - Pneumonia due to coronavirus disease 2019 Status: Acute Assessment and Plan: weakness on presentation with upper respiratory symptoms. Denies shortness of breaths and he is not requiring oxygen DC remdesivir and dexamethasone per policy Isolation Conservative treatment (2) Obstructive sleep apnea: Code(s): G47.33 - Obstructive sleep apnea (adult) (pediatric) Status: Acute Assessment and Plan: Auto titrating settings ordered for bedtime (3) Unspecified sequelae of other cerebrovascular disease: Code(s): I69.80 - Unspecified sequelae of other cerebrovascular disease Status: Acute Assessment and Plan: History of CVA with right-sided residuals. Per the patient he normally walks with a walker. He reports worsening weakness over the last week. PT/OT consult for placement. Subjective Date/time seen: 10/02/23 08:47 Interval history: HPI obtained from the chart, He is an unfortunate 77 years old white male who is a poor historian.? He has a history of large left-sided stroke causing severe aphasia, with residual mobility deficit and right-sided weakness.? He has been found to be getting progressively weak and tired. He had an unresponsive episode at home today.? He was brought to the ER for evaluation by EMS, workup was done which showed COVID-19. ? He is too weak for his to take care of him at home.? He was started on IV remdesivir and oral dexamethasone in the ED. He is being admitted for medical management, close monitoring and PT/OT evaluation for DC planning. 10/02: Pleasant gentleman here with weakness and found to be COVID positive. He is not having any oxygen requirements. He does report sore throat congestion and cough. He denies headache or dizziness, chest pain or shortness of breath, nausea,vomiting, diarrhea. He is voiding spontaneously and had bowel movement today. Will conservatively manage COVID symptoms and wait for PT OT to assess him for SNF. Review of Systems Review of Systems: ROS unobtainable: Yes unobtainable due to medical condition Exam Narrative: General: Chronically ill-appearing, well developed, well nourished, appears stated age. HEENT: normocephalic, atraumatic. Mucous membranes moist. EOMI, PERRLA, bilateral sclera anicteric, no conjunctival injection. Neck supple without JVD, lymphadenopathy, or bruit. Respiratory: clear yet diminished auscultation bilaterally. No rales/rhonic/wheezes. Cardiovascular: Regular rate and rhythm, normal S1-S2 upon auscultation. No murmurs, rubs, or clicks. PMI is nondisplaced, capillary re-fill less than 3 second. Abdomen: Soft, round, no pulsatile masses, non-distended and non-tender. No rebound, no guarding. No CVA tenderness, no hepatosplenomegaly. Bowel sounds present to all four quadrants. No high pitch or tinkling sounds, resonant to percussion. Extremities: No cyanosis, clubbing, or edema present. Pulses are palpable 2/2. Active ROM to all four extremities. Generalized weakness. Neuro: Alert and orientated x 4. PERRLA. Cranial nerves 2-12 intact without focal deficit. Right-sided weakness and aphasia per history. Skin: Warm, dry, and intact, without rash, erythema, or lesion. Erythema to pannus and bilateral groin. Lines: PIV Incisions: None Psych: pleasant, cooperative, normal speech, normal affect, no hallucinations, no dysarthria, Objective Data Vital Signs Vital Signs: Vital Signs - 24 hr 10/01/23 16:22 10/01/23 16:22 10/01/23 17:01 Temperature 98.0 F Pulse Rate 98 98 92 Respiratory Rate 18 18 18 Blood Pressure 155/77 H 155/77 H 153/80 H Pulse Oximetry 97 97 100 Oxygen Delivery Room Air Oxygen Flow Rate 3 10/01/23 18:05 10/01/23 19:22 10/01/23 21:00 Temperature 96.7 F L Pulse Rate 94 74 95 Respiratory Rate 20 16 18 Blood Pressure 136/46 L 136/70 1
[2023-10-02] MEDS: ENOXAPARIN 40 MG/0.4 ML SYRINGE SUB-Q (09:47)
[2023-10-02 12:00] VITALS: BP 132/67; PULSE 86; RESP 20; TEMP 36.6; O2SAT 96
[2023-10-02 12:52] LABS: Glucose Point of Care 298 mg/dl (65-105)
[2023-10-02 16:00] VITALS: BP 121/67; PULSE 84; RESP 20; TEMP 36.6; O2SAT 98
[2023-10-02 16:51] LABS: Glucose Point of Care 287 mg/dl (65-105)
--- NOTE | 2023-10-02 19:24 | PC.NURSE ---
This patient, Nacho Hayes, was received from ICU-3 on 10/02/23 at 1855 . Patient/family oriented to unit policies and routines
[2023-10-02 19:41] VITALS: BP 121/69; PULSE 88; RESP 20; TEMP 36.6; O2SAT 96
[2023-10-02 20:00] VITALS: PULSE 88; RESP 20; O2SAT 96
[2023-10-02 21:35] LABS: Glucose Point of Care 358 mg/dl (65-105)
[2023-10-02] MEDS: TOLNAFTATE 1% POWDER 45 GM BTL 1 APPLIC TOPICAL (22:05)
[2023-10-03] VITALS: BP 130/70; PULSE 80; RESP 20; TEMP 36.7; O2SAT 98
[2023-10-03 04:00] VITALS: BP 101/58; PULSE 98; RESP 20; TEMP 37; O2SAT 100
[2023-10-03 07:43] LABS: Basophils Percent Auto 0.3 % (0.2-1.2); Hematocrit 44.3 % (42.0-52.0); Hemoglobin 13.8 g/dL (14.0-18.0); Immature Granulocyte Absolute 0.04 K/mm3 (0.00-0.031); Immature Granulocyte Percent A 0.5 % (0-0.5); Lymphocytes Absolute Auto 1.45 K/mm3 (0.9-3.2); Lymphocytes Percent Auto 18.2 % (18.3-44.2); Mean Corpuscular HGB Conc 31.2 g/dl (32-36); Mean Corpuscular Hemoglobin 25.7 pg (26-34); Mean Corpuscular Volume 82.6 fl (80-100); Monocytes Absolute Auto 0.7 K/mm3 (0.1-0.6); Monocytes Percent Auto 9.3 % (2.6-8.5); Neutrophils Absolute Auto 5.7 K/mm3 (1.3-6.7); Neutrophils Percent Auto 71.7 % (45.5-73.1); Platelet Count Result 260 k/mm3 (150-375); Red Blood Count 5.36 M/mm3 (4.6-6.20); Red Cell Distribution Width 17.9 % (11.5-14.5)
[2023-10-03 07:57] LABS: Anion Gap 12 mmol/L (8-16); Blood Urea Nitrogen 43 mg/dL (9-20); Calcium 9.1 mg/dL (8.4-10.2); Carbon Dioxide 21 mmol/L (22-30); Chloride 104 mmol/L (98-107); Estimated CRCL calculation 67 ml/min; Estimated Glomerular Filt Rate > 60; Glucose 199 mg/dL (65-110); Potassium 4.2 mmol/L (3.4-5.0); Sodium 137 mmol/L (137-145)
[2023-10-03 08:00] VITALS: BP 127/74; PULSE 65; RESP 18; TEMP 37.3; O2SAT 96
[2023-10-03] MEDS: DULoxetine HCL 60 MG CAPSULE.DR PO (08:10)
[2023-10-03] MEDS: OMEGA 3 POLYUNSAT FATTY ACIDS 1 GM CAP PO (08:10)
[2023-10-03] MEDS: ASPIRIN 81 MG ENTERIC TABLET PO (08:10)
[2023-10-03] MEDS: metFORMIN HCL 500 MG TABLET 1000 MG PO (08:10)
[2023-10-03] MEDS: EMPAGLIFLOZIN 25 MG TABLET BY MOUTH (08:11)
[2023-10-03] MEDS: CHOLECALCIFEROL 1,000 UNITS TABLET 1000 UNITS PO (08:11)
[2023-10-03] MEDS: CHOLECALCIFEROL 1,000 UNITS TABLET 2000 UNITS PO (08:11)
[2023-10-03] MEDS: ZINC SULFATE 220 MG CAPSULE PO (08:11)
[2023-10-03] MEDS: FERROUS SULFATE 325 MG TABLET DR BY MOUTH (08:11)
[2023-10-03] MEDS: ASCORBIC ACID 500 MG TABLET PO (08:11)
[2023-10-03] MEDS: lisinopriL 10 MG TABLET PO (08:11)
[2023-10-03] MEDS: GABAPENTIN 300 MG CAPSULE PO ×2 (08:11→12:06)
[2023-10-03] MEDS: CLOPIDOGREL BISULFATE 75 MG TABLET PO (08:12)
[2023-10-03] MEDS: ATORVASTATIN 40 MG TABLET PO (08:12)
[2023-10-03] MEDS: INSULIN GLARGINE (*BKC) 100 UNITS/ML 98 UNITS SUB-Q (08:13)
[2023-10-03 08:17] LABS: Glucose Point of Care 170 mg/dl (65-105)
[2023-10-03] MEDS: TOLNAFTATE 1% POWDER 45 GM BTL 1 APPLIC TOPICAL (08:25)
--- NOTE | 2023-10-03 08:59 | PM.IMPN ---
Progress Note: A&P Assessment and Plan (1) Pneumonia due to COVID-19 virus: Code(s): U07.1 - COVID-19; J12.82 - Pneumonia due to coronavirus disease 2019 Status: Acute Assessment and Plan: weakness on presentation with upper respiratory symptoms. Denies shortness of breaths and he is not requiring oxygen DC remdesivir and dexamethasone per policy Isolation Conservative treatment (2) Obstructive sleep apnea: Code(s): G47.33 - Obstructive sleep apnea (adult) (pediatric) Status: Acute Assessment and Plan: Auto titrating settings ordered for bedtime (3) Unspecified sequelae of other cerebrovascular disease: Code(s): I69.80 - Unspecified sequelae of other cerebrovascular disease Status: Acute Assessment and Plan: History of CVA with right-sided residuals. Per the patient he normally walks with a walker. He reports worsening weakness over the last week. PT/OT consult for placement. (4) History of diabetes mellitus: Code(s): Z86.39 - Personal history of other endocrine, nutritional and metabolic disease Status: Acute Assessment and Plan: A1c 8.7% in 08/2023. On Empagliflozin, Lantus 98 units daily, Metformin 1000 mg BID, and Sitagliptin. Accu checks ac/hs and hypoglycemia protocol Blood glucose is not well controlled. Glucose ranging high 200s-358. Increase SSI insulin to high dose slide Plan Feeding: Analgesia: Thromboembolic prophylaxis: Ulcer prophylaxis: Glycemic control: Bowel regimen: Lines: Antibiotics: Disposition: Subjective Date/time seen: 10/03/23 08:59 Interval history: HPI obtained from the chart, He is an unfortunate 77 years old white male who is a poor historian.? He has a history of large left-sided stroke causing severe aphasia, with residual mobility deficit and right-sided weakness.? He has been found to be getting progressively weak and tired. He had an unresponsive episode at home today.? He was brought to the ER for evaluation by EMS, workup was done which showed COVID-19. ? He is too weak for his to take care of him at home.? He was started on IV remdesivir and oral dexamethasone in the ED. He is being admitted for medical management, close monitoring and PT/OT evaluation for DC planning. 10/02: Pleasant gentleman here with weakness and found to be COVID positive. He is not having any oxygen requirements. He does report sore throat congestion and cough. He denies headache or dizziness, chest pain or shortness of breath, nausea,vomiting, diarrhea. He is voiding spontaneously and had bowel movement today. Will conservatively manage COVID symptoms and wait for PT OT to assess him for SNF. 10/03: PT/OT are recommending home health therapy. He is still not requiring oxygen. He can continue conservative treatment for COVID at home. Review of Systems Review of Systems: All systems reviewed & are unremarkable except as noted in HPI and below Exam Narrative: General: Chronically ill-appearing, well developed, well nourished, appears stated age. HEENT: normocephalic, atraumatic. Mucous membranes moist. EOMI, PERRLA, bilateral sclera anicteric, no conjunctival injection. Neck supple without JVD, lymphadenopathy, or bruit. Respiratory: clear yet diminished auscultation bilaterally. No rales/rhonic/wheezes. Cardiovascular: Regular rate and rhythm, normal S1-S2 upon auscultation. No murmurs, rubs, or clicks. PMI is nondisplaced, capillary re-fill less than 3 second. Abdomen: Soft, round, no pulsatile masses, non-distended and non-tender. No rebound, no guarding. No CVA tenderness, no hepatosplenomegaly. Bowel sounds present to all four quadrants. No high pitch or tinkling sounds, resonant to percussion. Extremities: No cyanosis, clubbing, or edema present. Pulses are palpable 2/2. Active ROM to all four extremities. Generalized weakness. Neuro: Alert and orientated x 4. PERRLA. Cranial nerves 2-12 intact without
[2023-10-03] MEDS: ENOXAPARIN 40 MG/0.4 ML SYRINGE SUB-Q (11:35)
[2023-10-03 11:42] LABS: Glucose Point of Care 204 mg/dl (65-105)
[2023-10-03 12:00] VITALS: BP 134/67; PULSE 91; RESP 18; TEMP 36.9; O2SAT 96
[2023-10-03] MEDS: INSULIN ASPART (*BKC) 100 UNITS/ML SUB-Q (12:06)
--- NOTE | 2023-10-03 12:42 | PM.DS ---
DS: Admitting Diagnosis Discharge Date 10/03 Admitting Diagnosis weakness DS: Discharge Diagnosis Discharge Diagnosis (1) Pneumonia due to COVID-19 virus: Code(s): U07.1 - COVID-19; J12.82 - Pneumonia due to coronavirus disease 2019 Status: Acute Assessment and Plan: weakness on presentation with upper respiratory symptoms. Denies shortness of breaths and he is not requiring oxygen DC remdesivir and dexamethasone per policy Isolation Conservative treatment (2) Obstructive sleep apnea: Code(s): G47.33 - Obstructive sleep apnea (adult) (pediatric) Status: Acute Assessment and Plan: Auto titrating settings ordered for bedtime (3) Unspecified sequelae of other cerebrovascular disease: Code(s): I69.80 - Unspecified sequelae of other cerebrovascular disease Status: Acute Assessment and Plan: History of CVA with right-sided residuals. Per the patient he normally walks with a walker. He reports worsening weakness over the last week. PT/OT consult for placement. (4) History of diabetes mellitus: Code(s): Z86.39 - Personal history of other endocrine, nutritional and metabolic disease Status: Acute Assessment and Plan: A1c 8.7% in 08/2023. On Empagliflozin, Lantus 98 units daily, Metformin 1000 mg BID, and Sitagliptin. Accu checks ac/hs and hypoglycemia protocol Blood glucose is not well controlled. Glucose ranging high 200s-358. Increase SSI insulin to high dose slide Plan Feeding: Analgesia: Thromboembolic prophylaxis: Ulcer prophylaxis: Glycemic control: Bowel regimen: Lines: Antibiotics: Disposition: DS: Summary Hospital Course Hospital Course: He is an unfortunate 77 years old white male who is a poor historian.? He has a history of large left-sided stroke causing severe aphasia, with residual mobility deficit and right-sided weakness.? He has been found to be getting progressively weak and tired. He had an unresponsive episode at home today.? He was brought to the ER for evaluation by EMS, workup was done which showed COVID-19. ? He is too weak for his to take care of him at home.? He was started on IV remdesivir and oral dexamethasone in the ED. He is being admitted for medical management, close monitoring and PT/OT evaluation for DC planning. 10/02:? Pleasant gentleman here with weakness and found to be COVID positive.? He is not having any oxygen requirements.? He does report sore throat congestion and cough.? He denies headache or dizziness, chest pain or shortness of breath, nausea,vomiting, diarrhea.? He is voiding spontaneously and had bowel movement today.? Will conservatively manage COVID symptoms and wait for PT OT to assess him for SNF. 10/03: PT/OT are recommending home health therapy. He is still not requiring oxygen. He can continue conservative treatment for COVID at home. Status at Discharge Cognitive/behavioral status at discharge: Baseline Time Spent with Patient Time attestation: Total time spent providing and/or coordinating discharge services:46 Exam Narrative: General: Chronically ill-appearing, well developed, well nourished, appears stated age. HEENT: normocephalic, atraumatic. Mucous membranes moist. EOMI, PERRLA, bilateral sclera anicteric, no conjunctival injection. Neck supple without JVD, lymphadenopathy, or bruit. Respiratory: clear yet diminished auscultation bilaterally. No rales/rhonic/wheezes. Cardiovascular: Regular rate and rhythm, normal S1-S2 upon auscultation. No murmurs, rubs, or clicks. PMI is nondisplaced, capillary re-fill less than 3 second. Abdomen: Soft, round, no pulsatile masses, non-distended and non-tender. No rebound, no guarding. No CVA tenderness, no hepatosplenomegaly. Bowel sounds present to all four quadrants. No high pitch or tinkling sounds, resonant to percussion. Extremities: No cyanosis, clubbing, or edema present. Pulses are palpable 2/2. Active ROM to all four extre
[2023-10-04 15:38] LABS: Glucose Point of Care 273 mg/dl (65-105)
== END 2023-10-03 15:35 | disposition home health service (06) | DRG 177 ==
LOC: ANHED 16:37 → ANH3MEDSUR 19:45
PROVIDERS: Family Medicine; Admitting Provider Hospitalist; Emergency Provider Student in an Organized Health Care Education/Training Program; PCP Family Medicine; Visit Provider Nurse Practitioner Acute Care
DX: U07.1 COVID-19 (principal); J12.82 Pneumonia due to coronavirus disease 2019; I69.351 Hemiplegia and hemiparesis following cerebral infarction affecting right dominant side; G47.33 Obstructive sleep apnea (adult) (pediatric); I69.320 Aphasia following cerebral infarction; I69.398 Other sequelae of cerebral infarction; R26.89 Other abnormalities of gait and mobility; I25.10 Atherosclerotic heart disease of native coronary artery without angina pectoris; I10 Essential (primary) hypertension; E11.9 Type 2 diabetes mellitus without complications; E11.311 Type 2 diabetes mellitus with unspecified diabetic retinopathy with macular edema; R91.1 Solitary pulmonary nodule; D50.9 Iron deficiency anemia, unspecified; E55.9 Vitamin D deficiency, unspecified; F33.41 Major depressive disorder, recurrent, in partial remission; E66.9 Obesity, unspecified; Z68.31 Body mass index [BMI] 31.0-31.9, adult; Z87.891 Personal history of nicotine dependence
CPT/HCPCS: 36415; 70450; 70496; 70498; 71045; 80048; 80053; 80076; 81003; 82948; 83735; 84100; 84484; 85025; 85610; 85730; 87637; 93005; 97161; 97165; 99285; A9270; J0248; J1100; J1650; J1815; J7030; J8540; Q9967

== ENCOUNTER 2023-10-07 19:05 | Inpatient (IN) | payer MEDICARE, SELFPAY ==
[2023-10-07] VITALS (18 sets, daily range): BP systolic 113–148; BP diastolic 60–79; PULSE 94–113; RESP 14–21; TEMP 37.7; O2SAT 93–99
--- NOTE | ~2023-10-07 | XR_ITS ---
Portable chest x-ray Comparison: 10/07/2023 Clinical History: Change in condition Findings: Lungs are clear, without focal consolidation or pleural effusion. Cardiomediastinal silho uette is stable. Bones and soft tissues are unremarkable. Impression: Clear lungs. Reviewed, dictated and finalized at location . R TESTER Impression: Clear lungs.
--- NOTE | ~2023-10-07 | CT_ITS ---
EXAMINATION: CT chest abdomen pelvis w con DATE: 10/10/2023 15:31 INDICATION: AMS, diffuse abd tenderness . TECHNIQUE: Computed tomography (CT) of the chest, abdomen, and pelvis was performed with 100 mL Omnip aque-350 intravenous contrast. Automated exposure control and iterative reconstruction technique were employed. The dose-length product was 2909.40 mGy-cm. COMPARISON: CTA cap 06/05/2023 FINDINGS: Exam limited by respiratory motion artifact and beam hardening from arm down positioning. CHEST: Thoracic aorta: No significant dilation. Mild arch calcification. Lung parenchyma and airways: Segmental, near lobar consolidation in the right lower lobe, with volume loss. Possible lower lobe bronchi airway debris, difficult to discern given the degree of motion. Thoracic inlet, axillae and chest wall: No thyroid or soft tissue mass. No axillary lymphadenopathy. Mediastinum: Small hiatal hernia. No mass or lymphadenopathy. Heart and pericardium: Cardiomegaly. No pericardial effusion. Coronary artery calcifications: Moderate. Pleura: No effusion or mass. Thoracic bones: No acute osseous finding in the chest. ABDOMEN/PELVIS: Liver: Left lobe cyst. Diffuse fatty infiltration. Biliary/Gallbladder: Gallbladder is normal. No bile duct dilation. Pancreas: Mild atrophy. Spleen: Normal. Adrenals:No mass. Kidneys: Bilateral cortical thinning. Simple left lower pole cyst. Simple right midpole and upper vanessa e cysts. Patchy enhancement of the right kidney, with slightly increased perinephric stranding GI tract: Mild distal esophageal and gastric wall edema. No small or large bowel dilation. Normal hemant endix. Diverticulosis without diverticulitis. Mesentery/Peritoneum: No ascites, mass, or free air. Retroperitoneum: No mass Atherosclerotic abdominal aortic and/or arterial calcifications. Pelvis: The urinary bladder is decompressed by a Osman catheter. Soft Tissues: Soft tissues and body wall unremarkable. Abdominopelvic bones: No acute osseous finding in the abdomen/pelvis. IMPRESSION: Segmental consolidation in the right lower lobe with volume loss, may represent atelectasis, possibly from mucoid impaction, noting that the bronchi are poorly evaluated due to motion artifact. Infectio n should also be considered in the differential. Mild esophagitis/gastritis. Hepatic steatosis. Patchy right renal enhancement concerning for pyelonephritis. Reviewed, dictated and finalized at location K. EM OPERATOR IMPRESSION: Segmental consolidation in the right lower lobe with volume loss, may represent atelectasis, possibly from mucoid impaction, noting that the bronchi are poorl y evaluated due to motion artifact. Infection should also be considered in the differential. Mild esophagitis/gastritis. Hepatic steatosis. Patchy right renal enhancement concerning for pyelonephritis.
--- NOTE | ~2023-10-07 | XR_ITS ---
EXAMINATION: XR chest 1V portable DATE: 10/07/2023 19:42 INDICATION: Cough. TECHNIQUE: A single frontal view of the chest was obtained. COMPARISON: Chest single view 10/01/2023, chest CT 06/05/2023 FINDINGS: The lung volumes are small. There is mild atelectasis in the lower lung zones. No pleural e ffusion or pneumothorax. The heart size is normal. IMPRESSION: 1. Small lung volumes with mild atelectasis in the lower lung zones. Reviewed, dictated and finalized at location E. K CLERK
--- NOTE | 2023-10-07 19:30 | ECG_ITS ---
Measurements Intervals Martin Rate: 108 P: VT: 0 QRS: 240 QRSD: 116 T: 100 QT: 328 QTc: 440 Interpretive Statements SINUS TACHYCARDIA INCOMPLETE RIGHT BUNDLE BRANCH BLOCK [90+ ms QRS DURATION, TERMINAL R IN V1/V2, 40+ ms S IN I/aVL/V4/V5/V6] LEFT ANTERIOR SUPERIOR HEMIBLOCK ABNORMAL ECG COMPARED TO ECG 10/01/2023 16:25:33 NO SIGNIFICANT CHANGE Electronically Signed On 10-08-2023 7:28:13 [employer] WORKER by Mani Borrego M.D.
--- NOTE | 2023-10-07 19:32 | ED.WEAKNESS ---
HPI - Weakness General Chief complaint: Weakness Stated complaint: LETHARGIC, WEAKER THAN NORMAL Time Seen by Provider: 10/07/23 19:23 History of Present Illness HPI Narrative: Patient is a 77-year-old male who presents ER with weakness. Patient with history of expressive aphasia and chronic right-sided weakness due to CVA. He walks with a walker. reports he became more fatigued and tired at 4:00 p.m. after working with occupational therapy. He is admitted 1 week ago for COVID-19 related illness. He was discharged to home. He has had no new Raynaud's or sore throat or productive cough. Patient is up and mobile earlier this morning and change his own depends. Patient noted to have elevated temperature upon arrival here but denies any fevers well at home. Related Data Home Medications Medication Instructions Recorded Confirmed aspirin 81 mg tablet,delayed 81 mg PO DAILY 11/29/19 10/08/23 release (Ecotrin Low Strength) cholecalciferol (vitamin D3) 50 50 mcg PO DAILY 05/02/20 10/08/23 mcg (2,000 unit) capsule icosapent ethyl 1 gram capsule 1 g PO BID 10/01/23 10/08/23 Allergies Allergy/AdvReac Type Severity Reaction Status Date / Time No Known Allergies Allergy Verified 10/08/23 01:27 Review of Systems Review of Systems: ROS unobtainable: Yes unobtainable due to medical condition ( Expressive aphasia) [facility] Past Medical History Medical History (Updated 10/03/23 @ 09:02 by Maria Del Rosario Perrin APRN) Atherosclerotic heart disease of [place] coronary artery without angina pectoris Essential (primary) hypertension History of asbestos exposure History of coronary artery disease History of CVA (cerebrovascular accident) History of diabetes mellitus Hyperlipidemia, unspecified Impaired mobility 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, recurrent, in partial remission Obesity Obstructive sleep apnea Severe aphasia Solitary lung nodule 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 Unspecified sequelae of other cerebrovascular disease Urgency of urination Vitamin D deficiency, unspecified Surgical History Surgical History H/O hernia repair Family History Family History Mother Diabetes mellitus Family history of cardiovascular disease Family history of congenital heart disease Family history of arthritis Father Family history of emphysema, Onset Age: 55 Family history of congestive heart failure, Onset Age: 55 Acute myocardial infarction Family history of congenital heart disease Other Hypertension Social History Social History Social History: States smoke a little as a teenage, did not know time frame. Smoking status: Former smoker Second hand tobacco smoke exposure: Yes Alcohol intake: former Substance use: never Substance use type: does not use Lack of Transportation: No Lack of Food: Never True Current Housing: I Have Housing Concerned About Future Housing: No Difficulty Paying Gas/Electric Bills: No Difficulty Paying for Meds: No Currently Unemployed: No Education: High School Diploma/GED Difficulty w/ Childcare or Family Care: No Living arrangements: with family Additional living arrangements comments: to 56 years Occupation/Education: retired Additional occupation/education comments: served as an EMT/executive chef assistant Gender identity (if verbalized by the patient): Male Sexual Orientation (if Verbalized by the Patient): Straight or Heterosexual Spiritual care concerns: No Exam Narrative: GENERAL: chronically ill-appearing, obese, and in no acute distress. HEAD: Normocephalic, atraumatic. EYES: PERRL and EOMI. ENT: Mucous membranes moist. CHEST: Clear to auscultation. No respira
--- NOTE | 2023-10-07 19:34 | PC.NURSE ---
Per , patient is COVID positive.
[2023-10-07] MEDS: SODIUM CHLORIDE 0.9% IV 1,000 ML 999 ML IV CONT (19:51)
[2023-10-07] MEDS: ACETAMINOPHEN 325 MG TABLET 650 MG PO (19:52)
[2023-10-07 20:01] LABS: Basophils Percent Auto 0.3 % (0.2-1.2); Eosinophils Absolute Auto 0.1 K/mm3 (0-0.3); Eosinophils Percent Auto 0.4 % (0-4.4); Hematocrit 47.7 % (42.0-52.0); Immature Granulocyte Percent A 0.9 % (0-0.5); Lymphocytes Absolute Auto 1.23 K/mm3 (0.9-3.2); Lymphocytes Percent Auto 10.6 % (18.3-44.2); Mean Corpuscular HGB Conc 31.4 g/dl (32-36); Mean Corpuscular Hemoglobin 25.6 pg (26-34); Mean Corpuscular Volume 81.5 fl (80-100); Mean Platelet Volume 9.4 fl (7.4-10.4); Monocytes Absolute Auto 1.1 K/mm3 (0.1-0.6); Monocytes Percent Auto 9.5 % (2.6-8.5); Neutrophils Absolute Auto 9.1 K/mm3 (1.3-6.7); Neutrophils Percent Auto 78.3 % (45.5-73.1); Platelet Count Result 283 k/mm3 (150-375); Red Blood Count 5.85 M/mm3 (4.6-6.20); Red Cell Distribution Width 18.2 % (11.5-14.5); White Blood Count 11.6 K/mm3 (4.5-10.0)
[2023-10-07 20:10] LABS: Alanine Aminotransferase 34 U/L (6-50); Alkaline Phosphatase 101 U/L (38-126); Anion Gap 9 mmol/L (8-16); Aspartate Amino Transferase 24 U/L (17-59); Bilirubin,Total 0.6 mg/dL (0.2-1.3); Blood Urea Nitrogen 34 mg/dL (9-20); Calcium 9.3 mg/dL (8.4-10.2); Carbon Dioxide 25 mmol/L (22-30); Chloride 100 mmol/L (98-107); Estimated CRCL calculation 58 ml/min; Estimated Glomerular Filt Rate > 60; Glucose 237 mg/dL (65-110); Sodium 134 mmol/L (137-145)
[2023-10-07 20:53] LABS: Influenza A QL RT-PCR Negative (Negative); Influenza B QL RT-PCR Negative (Negative); RSV RNA, RT-PCR Negative (Negative); SARS-CoV-2 RNA PCR Positive (Negative)
[2023-10-07 22:02] LABS: Appearance Urine Clear (Clear); Bacteria Urine None Seen /hpf; Bilirubin Urine Negative (Negative); Blood Urine 1+ (Negative); Budding Yeast Urine Present /hpf; Color Urine Yellow (Yellow); Glucose Urine UA 3+ mg/dL (Negative); Ketones Urine Negative (Negative); Leukocyte Esterase Ur Negative LEU/UL (Negative); Need Manual Microscopic Reviewed; Nitrate Urine Negative (Negative); Protein Urine 2+ mg/dL (Negative); RBC Urine 21-50 /hpf (0-2); Specific Grav Ur 1.023 (1.001-1.035); Squamous Epithelial Cell Urine None seen /hpf (Few); Urobilinogen Urine 0.2 mg/dL (<2.0)
[2023-10-07 22:04] LABS: Add Urine Microscopic? YES
--- NOTE | 2023-10-07 23:22 | PM.IMHP ---
H&P: HPI History of Present Illness Date/Time: 10/07/23 23:22 Chief Complaint: Generalized weakness Narrative: This is a 77-year-old male with past medical history significant for dyslipidemia, type 2 diabetes mellitus, coronary artery disease, peripheral diabetic neuropathy, history of stroke, aphasia. Patient was brought to the emergency room for evaluation due to altered mental status according to he has not been making sense although patient is at baseline with aphasia after having a stroke but noted that he has been altered compared to his usual. History has been obtained from who is at bedside. Patient was recently discharged home after being treated for COVID pneumonia. Preliminary workup was significant for CT of chest abdomen and pelvis was reported as: EXAMINATION: CT chest abdomen pelvis w con DATE: 10/10/2023 15:31 INDICATION: AMS, diffuse abd tenderness . TECHNIQUE: Computed tomography (CT) of the chest, abdomen, and pelvis was performed with 100 mL Omnipaque-350 intravenous contrast. Automated exposure control and iterative reconstruction technique were employed. The dose-length product was 2909.40 mGy-cm. COMPARISON: CTA cap 06/05/2023 FINDINGS: Exam limited by respiratory motion artifact and beam hardening from arm down positioning. CHEST: Thoracic aorta: No significant dilation. Mild arch calcification. Lung parenchyma and airways: Segmental, near lobar consolidation in the right lower lobe, with volume loss. Possible lower lobe bronchi airway debris, difficult to discern given the degree of motion. Thoracic inlet, axillae and chest wall: No thyroid or soft tissue mass. No axillary lymphadenopathy. Mediastinum: Small hiatal hernia. No mass or lymphadenopathy. Heart and pericardium: Cardiomegaly. No pericardial effusion. Coronary artery calcifications: Moderate. Pleura: No effusion or mass. Thoracic bones: No acute osseous finding in the chest. ABDOMEN/PELVIS: Liver: Left lobe cyst. Diffuse fatty infiltration.? Biliary/Gallbladder: Gallbladder is normal. No bile duct dilation. Pancreas: Mild atrophy. Spleen: Normal. Adrenals:No mass. Kidneys: Bilateral cortical thinning. Simple left lower pole cyst. Simple right midpole and upper pole cysts. Patchy enhancement of the right kidney, with slightly increased perinephric stranding GI tract: Mild distal esophageal and gastric wall edema. No small or large bowel dilation. Normal appendix. Diverticulosis without diverticulitis. Mesentery/Peritoneum: No ascites, mass, or free air. Retroperitoneum: No mass Atherosclerotic abdominal aortic and/or arterial calcifications. Pelvis: The urinary bladder is decompressed by a Osman catheter. Soft Tissues: Soft tissues and body wall unremarkable. Abdominopelvic bones:? No acute osseous finding in the abdomen/pelvis. IMPRESSION: Segmental consolidation in the right lower lobe with volume loss, may represent atelectasis, possibly from mucoid impaction, noting that the bronchi are poorly evaluated due to motion artifact. Infection should also be considered in the differential. Mild esophagitis/gastritis. Hepatic steatosis. Patchy right renal enhancement concerning for pyelonephritis. 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
[2023-10-08] VITALS (8 sets, daily range): BP systolic 141–157; BP diastolic 64–79; PULSE 88–113; RESP 16–20; TEMP 36.2–37.1; O2SAT 94–96; BMI 33.7
--- NOTE | 2023-10-08 01:20 | ADMGEN ---
This patient, Nacho Hayes, was admitted to Medical Room 342-01. Patient/family oriented to hospital policies and general routines including ID bracelet, bed and alarms, visiting hours, pain management, procedures, bathroom and other care routines, personal items, smoking policy, room service/diet, and visiting hours. Information on how to activate the Rapid Response Team has been discussed. Patient/Family are encouraged to report perceived risks to care and to ask questions if they do not understand what they are told or what they should do.
[2023-10-08 08:42] LABS: Glucose Point of Care 199 mg/dl (65-105)
[2023-10-08 08:48] LABS: Basophils Percent Auto 0.3 % (0.2-1.2); Eosinophils Percent Auto 0.4 % (0-4.4); Hematocrit 49.1 % (42.0-52.0); Hemoglobin 15.2 g/dL (14.0-18.0); Immature Granulocyte Absolute 0.08 K/mm3 (0.00-0.031); Immature Granulocyte Percent A 0.8 % (0-0.5); Lymphocytes Absolute Auto 0.88 K/mm3 (0.9-3.2); Mean Corpuscular Hemoglobin 25.4 pg (26-34); Mean Platelet Volume 9.3 fl (7.4-10.4); Monocytes Absolute Auto 0.9 K/mm3 (0.1-0.6); Monocytes Percent Auto 9.2 % (2.6-8.5); Neutrophils Absolute Auto 7.8 K/mm3 (1.3-6.7); Neutrophils Percent Auto 80.3 % (45.5-73.1); Platelet Count Result 257 k/mm3 (150-375); Red Blood Count 5.99 M/mm3 (4.6-6.20); Red Cell Distribution Width 18.8 % (11.5-14.5); White Blood Count 9.7 K/mm3 (4.5-10.0)
[2023-10-08] MEDS: CHOLECALCIFEROL 1,000 UNITS TABLET 2000 UNITS PO (08:48)
[2023-10-08] MEDS: ASPIRIN 81 MG ENTERIC TABLET PO (08:49)
[2023-10-08] MEDS: lisinopriL 10 MG TABLET PO (08:49)
[2023-10-08] MEDS: OMEGA 3 POLYUNSAT FATTY ACIDS 1 GM CAP PO ×2 (08:49→16:41)
[2023-10-08] MEDS: CLOPIDOGREL BISULFATE 75 MG TABLET PO (08:49)
[2023-10-08] MEDS: FERROUS SULFATE 325 MG TABLET DR PO (08:49)
[2023-10-08] MEDS: DULoxetine HCL 60 MG CAPSULE.DR PO (08:49)
[2023-10-08] MEDS: INSULIN GLARGINE (*BKC) 100 UNITS/ML 98 UNITS SUB-Q (08:49)
[2023-10-08] MEDS: GABAPENTIN 300 MG CAPSULE PO ×3 (08:49→16:41)
--- NOTE | 2023-10-08 10:32 | PCPTNOTE ---
attempted PT eval 1030- pt lethargic, able to arouse slightly, but he stated no and did not want to get up OOB; attempted to remove his covers, get him to move his legs- refused. Discussed pt with JOAQIUN Ramirez.
--- NOTE | 2023-10-08 11:54 | PCOTNOTE ---
Attempted to see pt. for occupational therapy evaluation. Spoke with pt., who is is alert, but confused and demonstrating difficulty following directions and awareness, with nurse reporting pt. is not appropriate at this time due to confusion. Pt. to been seen when demonstrating increased capacity for participation.
[2023-10-08] MEDS: INSULIN ASPART (*BKC) 100 UNITS/ML SUB-Q ×2 (12:21→17:50)
[2023-10-08 12:28] LABS: Glucose Point of Care 270 mg/dl (65-105)
--- NOTE | 2023-10-08 12:36 | PM.IMPN ---
Progress Note: A&P Assessment and Plan (1) UTI (urinary tract infection): Code(s): N39.0 - Urinary tract infection, site not specified Status: Acute Assessment and Plan: UA with 1+ blood, 21-50 rbc's, 11-20 WBCs and yeast present. Started on Rocephin Prior cultures significant for MRSA Adjust antibiotic to culture results (2) Urinary retention: Code(s): R33.9 - Retention of urine, unspecified Status: Acute Assessment and Plan: Patient was found have 600 mL of urine in the bladder. Osman catheter was placed. 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: Qualifiers: Diabetes mellitus correction insulin use: with piano player use Diabetic retinopathy severity: with proliferative retinopathy Laterality: bilateral Qualified Code(s): E11.3513 - Type 2 diabetes mellitus with proliferative diabetic retinopathy with macular edema, bilateral; Z79.4 - residential (current) use of insulin Code(s): E11.311 - 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 He has difficulty following directions. According to patient's this is not his baseline. He was found to have 600 mL in his bladder and Osman catheter was placed. According to patient's he is able to ambulate. PT and OT ordered to work with him. Exam Narrative: GENERAL: Comfortable, no acute distress HENMT: moist mucous membranes EYES: EOM intact b/l RESPIRATORY: clear to auscultation CARDIO: RRR GI: soft, nontender, bowel sounds present, distend the bladder SKIN: no rashes EXTREMITIES: no edema, redness or tenderness Objective Data Vital Signs Vital Signs: Vital Signs - 24 hr 10/07/23 19:08 10/07/23 19:30 10/07/23 19:14 Temperature 99.9 F H Pulse Rate 109 H 108 H 109 H Respiratory Rate 21 H Blood Pressure 113/65 Pulse Oximetry 99 97 Oxygen Delivery Room Air 10/07/23 19:15 10/07/23 19:16 10/07/23 19:30 Temperature Pulse Rate 108 H 110 H Respiratory Rate 16 14 Blood Pressure 124/60 Pulse Oximetry 93 94 Oxygen Delivery 10/07/23 19:31 10/07/23 19:45 10/07/23 19:46 Temperature Pulse Rate 109 H 107 H 113 H Respiratory Rate Blood Pressure 148/77 H 133/65 Pulse Oximetry 98 Oxygen Delivery 10/07/23 20:00 10/07/23 20:01 10/07/23 20:15 Temperature Pulse Rate 106 H 105 H 103 H Respiratory Rate 20 Blood Pressure 123/72 Pulse Oximetry 95 Oxygen Delivery 10/07/23 20:16 10/07/23 21:16 10/07/23 22:49 Temperature Pulse Rate 102 H 98 Respiratory Rate 19 18 Blood Pressure 119/65 116/68 Pulse Oximetry 97 Oxygen Delivery 10/07/23 23:16 10/07/23 23:17 10/07/23 23:30 Temperature Pulse Rate 99 98 94 Respiratory Rate 19 20 Blood Pressure 133/66 Pulse Oximetry Oxygen Delivery 10/07/23 23:31 10/08/23 01:55 10/08/23 07:33 Temperature 97.1 F L 97.1 F L Pulse Rate 97 88 Respiratory Rate 20 18 Blood Pressure 126/79 150/64 H Pulse Oximetry 95 Oxygen Delivery 10/08/23 06:00 Temperat
[2023-10-08 17:34] LABS: Glucose Point of Care 227 mg/dl (65-105)
[2023-10-08 21:04] LABS: Glucose Point of Care 172 mg/dl (65-105)
[2023-10-09 04:35] VITALS: PULSE 106; O2SAT 94
[2023-10-09 06:00] VITALS: BP 134/76; PULSE 95; RESP 16; TEMP 36.8; O2SAT 97
[2023-10-09 06:03] LABS: Hematocrit 52.9 % (42.0-52.0); Hemoglobin 16.6 g/dL (14.0-18.0); Mean Corpuscular HGB Conc 31.4 g/dl (32-36); Mean Corpuscular Hemoglobin 25.7 pg (26-34); Mean Corpuscular Volume 81.8 fl (80-100); Mean Platelet Volume 9.4 fl (7.4-10.4); Platelet Count Result 252 k/mm3 (150-375); Red Blood Count 6.47 M/mm3 (4.6-6.20); White Blood Count 13.3 K/mm3 (4.5-10.0)
[2023-10-09 06:17] LABS: Alanine Aminotransferase 28 U/L (6-50); Albumin Level 4.1 g/dL (3.5-5.1); Alkaline Phosphatase 97 U/L (38-126); Anion Gap 12 mmol/L (8-16); Aspartate Amino Transferase 26 U/L (17-59); Bilirubin,Total 0.9 mg/dL (0.2-1.3); Blood Urea Nitrogen 30 mg/dL (9-20); Calcium 9.4 mg/dL (8.4-10.2); Carbon Dioxide 21 mmol/L (22-30); Chloride 104 mmol/L (98-107); Estimated CRCL calculation 61 ml/min; Estimated Glomerular Filt Rate > 60; Glucose 218 mg/dL (65-110); Potassium 4.4 mmol/L (3.4-5.0); Sodium 137 mmol/L (137-145)
[2023-10-09 09:41] LABS: Glucose Point of Care 227 mg/dl (65-105)
--- NOTE | 2023-10-09 10:06 | PC.NURSE ---
RN gave update to Kelley via telephone on patient status
--- NOTE | 2023-10-09 10:34 | PC.NURSE ---
Patient is not following commands. Patient is not oriented. Patient is not answering any questions, pulling at ortega, and pulling at IV. RN is going to wait to give medications as patient is not following commands to swallow/take medications.
--- NOTE | 2023-10-09 12:06 | PM.IMPN ---
Progress Note: A&P Assessment and Plan (1) UTI (urinary tract infection): Code(s): N39.0 - Urinary tract infection, site not specified Status: Acute Assessment and Plan: UA with 1+ blood, 21-50 rbc's, 11-20 WBCs and yeast present. Prior cultures significant for MRSA Vanc added to rocephin due to hx of MRSA and white count jumping to 13.3 today Adjust antibiotic to culture results (2) Urinary retention: Code(s): R33.9 - Retention of urine, unspecified Status: Acute Assessment and Plan: Patient was found have 600 mL of urine in the bladder. Osman catheter was placed. 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: Qualifiers: Diabetes mellitus mcfp insulin use: with termite control representative use Diabetic retinopathy severity: with proliferative retinopathy Laterality: bilateral Qualified Code(s): E11.3513 - Type 2 diabetes mellitus with proliferative diabetic retinopathy with macular edema, bilateral; Z79.4 - prison (current) use of insulin Code(s): E11.311 - 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 Patient did appear to be in pain and tugging at his catheter. on closer inspection patient was sitting on his testicles causing him a pretty significant amount of pain. Once this was resolved his pain was much better. Added vanc on to patient's medication list due to history of MRSA in the urine. Exam Narrative: GENERAL: Comfortable, no acute distress HENMT: moist mucous membranes EYES: EOM intact b/l RESPIRATORY: clear to auscultation CARDIO: RRR GI:distended, soft, nontender, bowel sounds present SKIN: no rashes EXTREMITIES: no edema, redness or tenderness Objective Data Vital Signs Vital Signs: Vital Signs - 24 hr 10/08/23 14:00 10/08/23 22:00 10/08/23 22:25 Temperature 98.7 F 97.8 F Pulse Rate 108 H 113 H 108 H Respiratory Rate 20 16 Blood Pressure 157/79 H 141/76 H Pulse Oximetry 96 94 Oxygen Delivery 10/08/23 20:00 10/08/23 23:25 10/08/23 23:35 Temperature Pulse Rate 110 H Respiratory Rate Blood Pressure Pulse Oximetry 94 94 Oxygen Delivery Room Air Autopap Room Air 10/09/23 04:35 10/09/23 06:00 10/09/23 08:29 Temperature 98.3 F Pulse Rate 106 H 95 Respiratory Rate 16 Blood Pressure 134/76 Pulse Oximetry 94 97 Oxygen Delivery Autopap Room Air Intake/Output Intake/Output: Intake & Output 10/06/23 10/07/23 10/08/23 10/09/23 23:59 23:59 23:59 23:59 Intake Total 1000 580 50 Output Total 1450 950 Balance 1000 -870 -900 Meds/Results Medications: Active Medications Generic Name Dose Route Start Last Admin Trade Name Freq PRN Reason Stop Dose Admin Hydrocodone Bitart/Acetaminophen 1 tab 10/07/23 23:35 Hydrocodone/Acetaminophen (*Crx) 5-325 Mg Tablet PO Q4H PRN Pain Rated 4-6 Aspirin 81 mg 10/08/23 09:00 10/08/23 08:49 Aspirin 81 Mg Enteric Tablet PO 81 mg DAILY [place] Administration Clopidogrel Bisulfate 75 mg 10/08/23 09:00 10/08/23 08:49 Clopid
[2023-10-09 12:32] LABS: Glucose Point of Care 256 mg/dl (65-105)
[2023-10-09 15:25] VITALS: BP 153/73; PULSE 110; RESP 20; TEMP 37.2; O2SAT 94
[2023-10-09] MEDS: VANCOMYCIN 1,500 MG/NS 500 ML 1,500 MG/500 ML BAG 250 MG IVPB (15:28)
[2023-10-09 17:09] LABS: Glucose Point of Care 287 mg/dl (65-105)
[2023-10-09] MEDS: INSULIN ASPART (*BKC) 100 UNITS/ML SUB-Q ×2 (17:14→20:21)
[2023-10-09 21:03] LABS: Glucose Point of Care 390 mg/dl (65-105)
[2023-10-09 21:33] VITALS: BP 156/93; PULSE 114; RESP 20; TEMP 37.3; O2SAT 93
[2023-10-09 22:30] VITALS: PULSE 103; O2SAT 93
[2023-10-10] MEDS: VANCOMYCIN 1,500 MG/NS 500 ML 1,500 MG/500 ML BAG 250 MG IVPB (05:31)
[2023-10-10 06:00] VITALS: BP 148/94; PULSE 118; RESP 20; TEMP 36.2; O2SAT 92
[2023-10-10 06:22] LABS: Basophils Absolute Auto 0.1 K/mm3 (0.0-0.1); Basophils Percent Auto 0.4 % (0.2-1.2); Hemoglobin 17.7 g/dL (14.0-18.0); Immature Granulocyte Absolute 0.13 K/mm3 (0.00-0.031); Immature Granulocyte Percent A 0.8 % (0-0.5); Lymphocytes Absolute Auto 0.66 K/mm3 (0.9-3.2); Lymphocytes Percent Auto 3.9 % (18.3-44.2); Mean Corpuscular HGB Conc 32.2 g/dl (32-36); Mean Corpuscular Volume 80.8 fl (80-100); Mean Platelet Volume 9.5 fl (7.4-10.4); Monocytes Absolute Auto 1.5 K/mm3 (0.1-0.6); Monocytes Percent Auto 8.9 % (2.6-8.5); Neutrophils Absolute Auto 14.4 K/mm3 (1.3-6.7); Platelet Count Result 310 k/mm3 (150-375); Red Blood Count 6.81 M/mm3 (4.6-6.20); Red Cell Distribution Width 19.7 % (11.5-14.5); White Blood Count 16.7 K/mm3 (4.5-10.0)
[2023-10-10 06:36] LABS: Alanine Aminotransferase 29 U/L (6-50); Alkaline Phosphatase 103 U/L (38-126); Anion Gap 17 mmol/L (8-16); Aspartate Amino Transferase 48 U/L (17-59); Bilirubin,Total 0.9 mg/dL (0.2-1.3); Blood Urea Nitrogen 45 mg/dL (9-20); Calcium 9.2 mg/dL (8.4-10.2); Carbon Dioxide 16 mmol/L (22-30); Chloride 105 mmol/L (98-107); Estimated CRCL calculation 45 ml/min; Estimated Glomerular Filt Rate 45; Glucose 363 mg/dL (65-110); Potassium 4.2 mmol/L (3.4-5.0); Sodium 138 mmol/L (137-145)
[2023-10-10 08:23] LABS: Glucose Point of Care 379 mg/dl (65-105)
--- NOTE | 2023-10-10 08:43 | PCPTNOTE ---
attempted PT eval 08:36, pt sleeping with CPAP and would not respond to verbal/tactile/room lights stimulus, spoke with RN and will try again this 10/10
[2023-10-10] MEDS: SODIUM CHLORIDE 0.9% IV 1,000 ML 100 ML IV CONT (09:32)
[2023-10-10] MEDS: INSULIN ASPART (*BKC) 100 UNITS/ML SUB-Q ×4 (09:32→21:58)
[2023-10-10] MEDS: INSULIN GLARGINE (*BKC) 100 UNITS/ML 98 UNITS SUB-Q (09:35)
--- NOTE | 2023-10-10 11:02 | PC.NURSE ---
Patient is difficult to arouse. Unable to follow commands. Unable to swallow pills safely at this time. RN spoke with hospitalist Bella and updated her on patient status.
--- NOTE | 2023-10-10 11:39 | PCOTNOTE ---
Attempted OT eval at 11:39. Patient is unarousable and still on BiPAP machine. will follow.
--- NOTE | 2023-10-10 11:46 | PC.NURSE ---
RN gave update to Kelley (patient's ) via telephone in regards to patient's status.
[2023-10-10 11:58] LABS: Glucose Point of Care 388 mg/dl (65-105)
--- NOTE | 2023-10-10 12:04 | PM.IMPN ---
Progress Note: A&P Assessment and Plan (1) UTI (urinary tract infection): Code(s): N39.0 - Urinary tract infection, site not specified Status: Acute Assessment and Plan: UA with 1+ blood, 21-50 rbc's, 11-20 WBCs and yeast present. Prior cultures significant for MRSA Urine cultures came back positive for Osiris glabrata. Discussed with ID pharmacist and decided to discontinue vancomycin and add micafungin. Continue Rocephin. Blood cultures ordered. Osman catheter exchanged Patient does have diffuse abdominal tenderness. CT of the chest abdomen pelvis ordered. (2) Urinary retention: Code(s): R33.9 - Retention of urine, unspecified Status: Acute Assessment and Plan: Patient was found have 600 mL of urine in the bladder. Osman catheter was placed. Osman catheter exchange on 10/10/2023 (3) JADON (acute kidney injury): Code(s): N17.9 - Acute kidney failure, unspecified Status: Acute Assessment and Plan: Patient with a BUN and creatinine this morning 45/1.5 Started patient on fluids. 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: Qualifiers: Diabetes mellitus snf insulin use: with snf use Diabetic retinopathy severity: with proliferative retinopathy Laterality: bilateral Qualified Code(s): E11.3513 - Type 2 diabetes mellitus with proliferative diabetic retinopathy with macular edema, bilateral; Z79.4 - residential (current) use of insulin Code(s): E11.311 - 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 Spoke with ID pharmacist about patient's care. Patient started on micafungin. Patient having diffuse abdominal tenderness. CT of chest abdomen pelvis ordered. Guidelines recommend Osman catheter to be exchanged. Exam Narrative: GENERAL: Comfortable, no acute distress HENMT: moist mucous membranes EYES: EOM intact b/l RESPIRATORY: clear to auscultation CARDIO: RRR GI:distended, soft, Diffuse tenderness, bowel sounds present SKIN: no rashes EXTREMITIES: no edema, redness or tenderness Objective Data Vital Signs Vital Signs: Vital Signs - 24 hr 10/09/23 15:25 10/09/23 21:33 10/09/23 20:00 Temperature 98.9 F 99.1 F Pulse Rate 110 H 114 H Respiratory Rate 20 20 Blood Pressure 153/73 H 156/93 H Pulse Oximetry 94 93 Oxygen Delivery Room Air 10/09/23 22:30 10/10/23 06:00 Temperature 97.1 F L Pulse Rate 103 H 118 H Respiratory Rate 20 Blood Pressure 148/94 H Pulse Oximetry 93 92 Oxygen Delivery Autopap Intake/Output Intake/Output: Intake & Output 10/07/23 10/08/23 10/09/23 10/10/23 23:59 23:59 23:59 23:59 Intake Total 6700 581 8225 50 Output Total 1450 1550 1050 Balance 1000 -870 -520 -1000 Meds/Results Medications: Active Medications Generic Name Dose Route Start Last Admin Trade Name Freq PRN Reason Stop Dose Admin Hydrocodone Bitart/Acetaminophen 1 tab 10/07/23 23:35 Hydrocodone/Acetaminophen (*Crx) 5-325 Mg Tablet PO Q4H PRN Pain Rated 4-6 Aspirin 81 mg 12
[2023-10-10] MEDS: MICAFUNGIN SODIUM 100 MG in SODIUM CHLORIDE 0.9% IV 100 ML IVPB (13:02)
[2023-10-10 13:37] LABS: Appearance Urine Turbid (Clear); Bacteria Urine None Seen /hpf; Bilirubin Urine Negative (Negative); Blood Urine 3+ (Negative); Color Urine Yellow (Yellow); Glucose Urine UA 3+ mg/dL (Negative); Ketones Urine 1+ mg/dL (Negative); Leukocyte Esterase Ur Trace LEU/UL (Negative); Need Manual Microscopic Reviewed; Nitrate Urine Negative (Negative); Non Pathogenic Casts >20; Protein Urine 2+ mg/dL (Negative); RBC Urine 51-100 /hpf (0-2); Specific Grav Ur 1.029 (1.001-1.035); Squamous Epithelial Cell Urine Occasional /hpf (Few); Urobilinogen Urine 0.2 mg/dL (<2.0); WBC Urine 51-100 /hpf
[2023-10-10 13:39] LABS: Add Urine Microscopic? YES
[2023-10-10 13:54] VITALS: O2SAT 94
--- NOTE | 2023-10-10 14:07 | PCPTNOTE ---
10/10 14:02, check in on pt and he is still lethargic and not responding to stimuli, will continue to monitor
[2023-10-10 14:10] VITALS: O2SAT 94
--- NOTE | 2023-10-10 14:24 | PC.NURSE ---
RN spoke with Kelley via telephone and obtained telephone consent for CT scan.
[2023-10-10 14:56] VITALS: BP 151/84; PULSE 117; RESP 20; TEMP 37; O2SAT 93
--- NOTE | 2023-10-10 15:14 | PC.NURSE ---
Patient off of unit to CT scan
[2023-10-10 16:56] LABS: Glucose Point of Care 337 mg/dl (65-105)
[2023-10-10 20:13] VITALS: BP 151/89; PULSE 118; RESP 24; TEMP 36.6; O2SAT 92
[2023-10-10 21:43] LABS: Glucose Point of Care 349 mg/dl (65-105)
[2023-10-10 22:00] VITALS: BP 106/62; PULSE 129; RESP 34; O2SAT 92
--- NOTE | 2023-10-10 22:31 | PC.NURSE ---
Kelley notified of patient transfer to IMU at [id number]
[2023-10-10 22:38] LABS: Alveolar/Arterial O2 Gradient 75.6 mmHg; Base Excess ABG -6.2 mEq/l (+/-2.0); Carboxyhemoglobin 0.4 % THb (0-2.0); Fractional Inspired Oxygen 21 %; Methemoglobin ABG 0.2 %THb (0-1.5); Oxygen Content ABG 21.9 %vol (16.0-22.0); PO2 FiO2 Ratio Arterial Blood 2.23 %; Reduced Hemoglobin 17.1 %THb (0-5.0); pH ABG 7.438 (7.350-7.450)
[2023-10-10 22:42] LABS: PCO2 ABG 22.7 mmHg (35.0-45.0)
[2023-10-10 22:43] LABS: PO2 ABG 46.9 mmHg (80.0-100.0)
[2023-10-10 22:44] LABS: Oxygen Saturation ABG 85.3 % (95.0-100.0)
[2023-10-10 22:45] LABS: Modified Allen's Test Pass; Oxyhemoglobin 82.3 % THb (90.0-100.0); Site Drawn RIGHT BRACHIAL
[2023-10-10 22:46] LABS: Device CPAP
[2023-10-10 23:27] LABS: Basophils Absolute Auto 0.1 K/mm3 (0.0-0.1); Basophils Percent Auto 0.5 % (0.2-1.2); Eosinophils Absolute Auto 0.1 K/mm3 (0-0.3); Eosinophils Percent Auto 0.4 % (0-4.4); Hematocrit 59.8 % (42.0-52.0); Hemoglobin 17.5 g/dL (14.0-18.0); Immature Granulocyte Percent A 0.6 % (0-0.5); Lymphocytes Absolute Auto 2.21 K/mm3 (0.9-3.2); Mean Corpuscular HGB Conc 29.3 g/dl (32-36); Mean Corpuscular Hemoglobin 25.5 pg (26-34); Mean Platelet Volume 9.6 fl (7.4-10.4); Monocytes Absolute Auto 2.1 K/mm3 (0.1-0.6); Monocytes Percent Auto 12.2 % (2.6-8.5); Neutrophils Absolute Auto 12.5 K/mm3 (1.3-6.7); Neutrophils Percent Auto 73.3 % (45.5-73.1); Platelet Count Result 316 k/mm3 (150-375); Red Blood Count 6.87 M/mm3 (4.6-6.20); Red Cell Distribution Width 20.2 % (11.5-14.5)
[2023-10-10 23:41] LABS: Lactic Acid Reflex 5.2 mmol/L (0.7-2.0)
[2023-10-10 23:42] LABS: Anion Gap 17 mmol/L (8-16); Blood Urea Nitrogen 57 mg/dL (9-20); Calcium 8.7 mg/dL (8.4-10.2); Carbon Dioxide 15 mmol/L (22-30); Chloride 110 mmol/L (98-107); Estimated CRCL calculation 29 ml/min; Estimated Glomerular Filt Rate 26; Glucose 363 mg/dL (65-110); Magnesium 2.8 mg/dL (1.6-2.3); Potassium 3.6 mmol/L (3.4-5.0); Sodium 142 mmol/L (137-145)
--- NOTE | 2023-10-10 23:48 | PC.NURSE ---
2254 Arrived to 342 to assess patient due to reports of being obtunded and bipap being ordered. Pt is breathing at a regular rate but is labored/abdominal breathing. Patient only responds to strong pain by furrowing brows. When pupils were assessed they were uneven with the right midsized but fixed; left was initially dilated and responding to light. On second pass pupils were same size but neither were responsive. Spoke with Dr Kirkland who ordered a head CT stat, but still felt that bipap was appropriate. 2305 Called to inform of condition and verify that she consents to patient being ventilated if necessary due to patient history and current condition. stated that her would not want that, that he didn't want and extraordinary measures. This nurse explained that the ventilator could be temporary but I could not promise that outcome. stated her wouldn't want it at all, that the last 28 years have been hard for him, and he has been waiting for . Clarified that her statement meant if he he would want to be let go: no intubation and no CPR or medications if his heart were to stop. She agreed with statement. She also added that she would want the same for her as well. Educated per living will. comfortable with plan to place on bipap despite risks to airway. Explained that we would call her if the head CT showed anything. She asked if she could come up tomorrow and explained that since we did not know the cause of his decline, if it was another stroke, covid, or even if his body was giving out and he was actively dying, IMU would keep him on isolation precautions for now. Advised that if patient condition did not improve she may want to consider comfort measures. Hailey Sarah RN verified the DNR/DNI code status change with over the phone. 3rd medical staff to take patient to CT. 2329 Received call from Mario Alberto Gibson RN verifying code status change because the patient had no pulse. This nurse called family to make aware of passing. to come to hospital as soon as daughter arrives.
[2023-10-10 23:53] LABS: Anisocytosis 1+ (NORMAL); Burr Cells 1+ (NORMAL); Platelet Estimate Adequate (Adequate); Poikilocytosis 1+ (NORMAL); Schistocytes None Seen (NORMAL)
--- NOTE | 2023-10-11 01:49 | PC.NURSE ---
0145 body to lan per cart
--- NOTE | 2023-10-11 01:53 | PC.NURSE ---
I went into pts room and immediately contacted my charge and Dr. Kirkland due to status change from beginning of shift it was approx 2205. He was very tachypneic in the 30s and vitals had changed. Pt was still obtunded and not responsive to pain. Marita and Marichuy both immediately came to bedside. We put in ABGs, Labs, CXR, bipap, and transfer orders to IMU. While waiting for a clean room. ICU charge Chica came up to also put eyes on him. She called to clarify intubation if needed. At that time the changed him to DNR. We also put in Head CT orders cause pupils werent changing. In the time that Lab dominic labs and switched places for me and the transporter to take him down he
[2023-10-11 02:25] LABS: Reflex Lactic Acid Yes or No Add Lactic
--- NOTE | 2023-10-11 06:48 | P.DN_ITS ---
Discharge Summary Date and Time Date of : 10/10/23 Time of : 23:30 Provider Pronounced By: JENNIFER GARCIA RN Probable Cause of Probable Cause of : sepsis Summary Hospital Course: This is a 77-year-old male with a past medical history of type 2 diabetes, CAD, peripheral neuropathy, history of stroke, aphasia and dyslipidemia the presented to the ED on 10/07/2023 due to altered mental status. Patient is altered at baseline but according to the it had worsened. Patient had recently been discharged from the hospital after being treated for COVID pneumonia. CT revealed old infarct. CTA head neck showed large old infarct and the left MCA, 0% stenosis of the right internal carotid and 10% stenosis of left internal carotid no aneurysm seen. Chest x-ray showing mild atelectasis in the lower lung zones. Patient's urine and. Infected and he was started on Rocephin. He did have history of MRSA in the urine and blood this was also put on vancomycin. Patient's urine came back positive for Osiris glabrata on 10/09/2023 in the evening. The next day I discussed these findings with our ID pharmacist and he recommended micafungin, urinary catheter exchange and repeat UA. This was done on 10/10/2023. On the days leading up to patient's urine culture results his white count was slowly rising. It was assumed that patient was not treated appropriately due to UA coming back with yeast rather than bacteria. Vancomycin was discontinued and Rocephin was continued to cover for any other possible infections. CT of the chest abdomen pelvis was performed due to rise in white count. And this showed hepatic steatosis, mild esophagitis / gastritis and right patchy renal enhancement concerning for pyelonephritis. repeat chest x-ray with clear lungs. Over the night on 10/10/2023 patient had acute mental status change and was unable to be aroused with painful stimuli eyes. The shoe dresser was called and ABG, CBC CMP, lactic, chest x-ray and transfer orders were put in. Patient was put on BiPAP. Head CT was ordered due to nonreactive pupils. Patient's was called and his code status was changed to DNR per 's request. Labs revealed acute metabolic acidosis, high anion gap, worsening elevated white count, worsening kidney function, elevated lactic of 5.2. While in the process of transferring patient out of the IMU he had . Additional Data Confirmation of as documented by pronouncing clinician: Pupillary Reflex, Palpable Pulses, Response to Stimuli, Heart Tones and Breath Sounds Name of Provider Notified: DR. ALLRED Time Provider Notified: 23:35 Provider Requests Autopsy: No Family Requests Autopsy: No Street Car Mechanic Notified: Yes Date [facility] Notified of : 10/10/23 Time [facility] Notified of : 23:52 Hospice patient?: No
== END 2023-10-10 23:30 | disposition expired | DRG 871 ==
LOC: ANHED 19:40 → ANH3MED 10-08 00:09
PROVIDERS: Admitting Provider Internal Medicine; Emergency Provider Emergency Medicine; PCP Family Medicine; Visit Provider Internal Medicine Critical Care Medicine
DX: A41.9 Sepsis, unspecified organism (principal); U07.1 COVID-19; B37.49 Other urogenital candidiasis; E87.21 Acute metabolic acidosis; I69.351 Hemiplegia and hemiparesis following cerebral infarction affecting right dominant side; N17.9 Acute kidney failure, unspecified; Z66 Do not resuscitate; I69.320 Aphasia following cerebral infarction; D50.9 Iron deficiency anemia, unspecified; E11.42 Type 2 diabetes mellitus with diabetic polyneuropathy; E78.5 Hyperlipidemia, unspecified; E66.9 Obesity, unspecified; E11.319 Type 2 diabetes mellitus with unspecified diabetic retinopathy without macular edema; E55.9 Vitamin D deficiency, unspecified; G47.33 Obstructive sleep apnea (adult) (pediatric); I10 Essential (primary) hypertension; I25.10 Atherosclerotic heart disease of native coronary artery without angina pectoris; K76.0 Fatty (change of) liver, not elsewhere classified; K20.90 Esophagitis, unspecified without bleeding; R33.9 Retention of urine, unspecified; Z87.891 Personal history of nicotine dependence; Z86.14 Personal history of Methicillin resistant Staphylococcus aureus infection; Z79.4 Long term (current) use of insulin; Z79.82 Long term (current) use of aspirin; Z79.02 Long term (current) use of antithrombotics/antiplatelets; Z79.84 Long term (current) use of oral hypoglycemic drugs; Z99.89 Dependence on other enabling machines and devices; Z68.33 Body mass index [BMI] 33.0-33.9, adult
CPT/HCPCS: 36415; 36600; 71045; 71260; 74177; 80048; 80053; 81001; 82375; 82805; 82948; 83050; 83605; 83735; 85025; 85027; 87040; 87086; 87088; 87106; 87637; 93005; 96361; 99285; A9270; G0378; J0696; J1815; J2248; J3370; J7030; Q9967